=== PATIENT | female | born 1940 | race Caucasian/White ===

== ENCOUNTER 2016-10-19 17:07 | Observation (INO) | payer MEDICARE ==
[~2016-10-19] VITALS: Ht 165.1 cm; Wt 62.6 kg
--- NOTE | 2016-10-19 17:30 | Diagnostic Imaging Report ---
PROCEDURE: CT head without contrast. TECHNIQUE: Multiple contiguous axial images were obtained through the brain without the use of intravenous contrast. DATE: October 20, 2016. COMPARISON: None. INDICATION: A 76-year-old male, evaluation for stroke. Slurred speech and confusion. FINDINGS: The ventricles and cerebral spinal fluid spaces are of normal size and configuration for the patient's age. There is no mass effect or midline shift. There is no acute intracranial hemorrhage. There is no abnormal extra-axial fluid collection. The visualized portions of the paranasal sinuses, mastoid air cells and middle ears are well aerated. IMPRESSION: 1. No identified acute intracranial abnormality. Dictated by: Dictated on workstation # [id number]
--- NOTE | 2016-10-19 17:33 | Diagnostic Imaging Report ---
EXAM: CHEST 1 VIEW, AP/PA ONLY. INDICATION: Stroke protocol. Slurred speech. Confusion. COMPARISON: None. FINDINGS: Normal heart size and pulmonary vascularity. No focal pulmonary opacity, pleural effusion, or pneumothorax. Enchondroma in the proximal right humerus. Calcified aorta. No acute osseous findings. IMPRESSION: No acute cardiopulmonary findings. Dictated by: Dictated on workstation # [id number]
--- NOTE | 2016-10-19 17:34 | ED Neurological Problem ---
General Chief Complaint: Neuro-Stroke Like Symptoms Stated Complaint: POSSIBLE CVA Source: patient, EMS Exam Limitations: no limitations History of Present Illness Time seen by provider: 17:34 Timing/Duration: 1 hour Severity: mild Associated Symptoms: confusion (numbness in right arm), other (numbness in right arm) Constitutional: other (awareness that her speech was abnormal) Eyes: No Symptoms Reported Ears, Nose, Mouth, Throat: no symptoms reported Respiratory: cough, dyspnea on exertion, short of breath Cardiovascular: no symptoms reported Gastrointestinal: no symptoms reported Genitourinary: no symptoms reported Musculoskeletal: no symptoms reported Skin: no symptoms reported Psychiatric/Neurological: No Symptoms Reported Endocrine: No Symptoms Reported Hematologic/Lymphatic: No Symptoms Reported Past Klcdxql-Yvfwgd-Serkjm Hx Patient Social History Recent Foreign Travel: No Contact w/Someone Who Travel: No Physical Exam Vital Signs Vital Sign - Last 12Hours 10/19/16 17:09 Pulse 91 Resp 20 B/P (MAP) 219/140 Pulse Ox 94 O2 Delivery Room Air Capillary Refill : General Appearance: mild distress, other (speech was clear but she had difficulty naming objects or thoughts) Neck: non-tender, full range of motion, supple, normal inspection Respiratory: decreased breath sounds, rhonchi Cardiovascular: normal peripheral pulses, regular rate, rhythm, no edema, no gallop, no JVD, no murmur Gastrointestinal: normal bowel sounds, non tender, soft, no organomegaly, no pulsatile mass Extremities: normal range of motion, non-tender, normal inspection, no pedal edema, no calf tenderness, normal capillary refill, pelvis stable Neurologic/Psychiatric: food demonstrator II-XII nml as tested, no motor/sensory deficits, alert, normal mood/affect, oriented x 3 Crainal Nerves: normal hearing, normal speech (clear but word search) Coordination/Gait: normal finger to nose Motor/Sensory: no motor deficit, no sensory deficit, no pronator drift, negative Babinski's sign, positive Babinski's sign Skin: normal color, warm/dry Lymphatic: no adenopathy Progress/Results/Core Measures Results/Orders Lab Results Laboratory Tests Test 10/19/16 17:34 10/19/16 17:42 Range/Units White Blood Count 12.1 H 4.3-11.0 10^3/uL Red Blood Count 4.29 L 4.35-5.85 10^6/uL Hemoglobin 14.1 11.5-16.0 G/DL Hematocrit 40 35-52 % Mean Corpuscular Volume 94 80-99 FL Mean Corpuscular Hemoglobin 33 25-34 PG Mean Corpuscular Hemoglobin Concent 35 32-36 G/DL Red Cell Distribution Width 12.0 10.0-14.5 % Platelet Count 323 130-400 10^3/uL Mean Platelet Volume 8.3 7.4-10.4 FL Neutrophils (%) (Auto) 69 42-75 % Lymphocytes (%) (Auto) 15 12-44 % Monocytes (%) (Auto) 11 0-12 % Eosinophils (%) (Auto) 4 0-10 % Basophils (%) (Auto) 1 0-10 % Neutrophils # (Auto) 8.3 H 1.8-7.8 X 10^3 Lymphocytes # (Auto) 1.9 1.0-4.0 X 10^3 Monocytes # (Auto) 1.4 H 0.0-1.0 X 10^3 Eosinophils # (Auto) 0.5 H 0.0-0.3 10^3/uL Basophils # (Auto) 0.1 0.0-0.1 10^3/uL Prothrombin Time 12.0 L 12.2-14.7 SEC INR Comment 0.9 0.8-1.4 Activated Partial Thromboplast Time 28 24-35 SEC D-Dimer 0.55 H 0.00-0.49 UG/ML Glucometer 102 70-110 MG/DL My Orders Orders - SANDOVAL LARSON MD Ct Head Wo (10/19/16 17:08) Cbc With Automated Diff (10/19/16 17:18) Protime With Inr (10/19/16 17:18) Partial Thromboplastin Time (10/19/16 17:18) Comprehensive Metabolic Panel (10/19/16 17:18) Fibrin Degradation Products (10/19/16 17:18) Troponin I (10/19/16 17:18) Ua Culture If Indicated (10/19/16 17:18) Catheter(Urinary) Insert & Ass 03,15 (10/19/16 17:18) Ekg Tracing (10/19/16 17:18) Nothing By Mouth (10/20/16 Breakfast) Accucheck Stat ONCE (10/19/16 17:18) Saline Lock/Iv-Start (10/19/16 17:18) Saline Lock/Iv-Start (10/19/16 17:18) Vital Signs-Stroke Q1H (10/19/16 17:18) O2 (10/19/16 17:18) Intake & Output 06,14,22 (10/19/16 17:18) Monitor-Rhythm Ecg Trace Only (10/19/16 17:18) Dysphagia Screening Tool (10/19/16 17:18) Vital Signs/I&O Vital Sign - Last 12Hours 10/19/16 17:09 Pulse 91 Resp 20 B/P (MAP) 219/140 Pulse Ox 94 O2 Delivery Room Air Departure Communication Progress Notes 1806 the patient's family is here and the findings are discussed with them. 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 Impression Impression: Primary Impression: dysphasia Disposition: ADMITTED INPATIENT Condition: Stable/Unchanged Decision to Admit Reason: Admit from ER (General) Decision to Admit/Date: Oct 19, 2016 Time/Decision to Admit Time: 18:14 SANDOVAL LARSON MD Oct 19, 2016 17:34
[2016-10-19 17:41] LABS: BASOPHILS # (AUTO) 0.1 10^3/uL (0.0-0.1); BASOPHILS % (AUTO) 1 % (0-10); EOSINOPHILS # (AUTO) 0.5 10^3/uL (0.0-0.3); EOSINOPHILS % (AUTO) 4 % (0-10); LYMPHOCYTES # (AUTO) 1.9 X 10^3 (1.0-4.0); LYMPHOCYTES % (AUTO) 15 % (12-44); MEAN CORPUSCULAR HEMOGLOBIN 33 PG (25-34); MEAN CORPUSCULAR HGB CONC 35 G/DL (32-36); MEAN CORPUSCULAR VOLUME 94 FL (80-99); MEAN PLATELET VOLUME 8.3 FL (7.4-10.4); MONOCYTES # (AUTO) 1.4 X 10^3 (0.0-1.0); MONOCYTES % (AUTO) 11 % (0-12); NEUTROPHILS # (AUTO) 8.3 X 10^3 (1.8-7.8); NEUTROPHILS % (AUTO) 69 % (42-75); PLATELET COUNT 323 10^3/uL (130-400); RED BLOOD COUNT 4.29 10^6/uL (4.35-5.85); WHITE BLOOD COUNT 12.1 10^3/uL (4.3-11.0)
[2016-10-19 18:01] LABS: INR 0.9 (0.8-1.4)
[2016-10-19 18:11] LABS: ALANINE AMINOTRANSFERASE 23 U/L (0-55); ALBUMIN 4.4 G/DL (3.2-4.5); ANION GAP 13 MMOL/L (5-14); ASPARTATE AMINO TRANSFERASE 27 U/L (5-34); BILIRUBIN,TOTAL 0.4 MG/DL (0.1-1.0); BLOOD UREA NITROGEN 9 MG/DL (7-18); BUN/CREATININE RATIO 13; CALCIUM 9.8 MG/DL (8.5-10.1); CARBON DIOXIDE 22 MMOL/L (21-32); CHLORIDE 96 MMOL/L (98-107); CREATININE SERUM 0.67 MG/DL (0.60-1.30); GFR ESTIMATED > 60; GLUCOSE 92 MG/DL (70-105); POTASSIUM 4.3 MMOL/L (3.6-5.0); SODIUM 131 MMOL/L (135-145); TOTAL PROTEIN 7.1 G/DL (6.4-8.2)
[2016-10-19 18:17] LABS: TROPONIN I < 0.30 NG/ML (<0.30)
[2016-10-19] MEDS ORDERED: ASPIRIN 81 MG CHEW (CHILDREN'S ASA) PO ONE (18:30)
[2016-10-19 20:00] VITALS: BP 170/81
[2016-10-19] MEDS ORDERED: CATHETER FLUSH 10 ML SYR IV PRN (20:15)
[2016-10-19] MEDS: CATHETER FLUSH 10 ML SYR IV SCH (22:00)
[2016-10-19] MEDS ORDERED: RT-ALBUTEROL/IPRATROPIUM 3 ML (DUONEB) VIAL INH PRN (23:15)
[2016-10-19 23:35] VITALS: BP 167/88
[2016-10-20] VITALS: BP 158/76
[2016-10-20] MEDS ORDERED: LEVO50TA6 PO (00:17)
[2016-10-20] MEDS ORDERED: [UNRECOGNIZED DRUG - CODE] PO (00:17)
[2016-10-20] MEDS ORDERED: ROPI1TAB2 PO (00:17)
[2016-10-20] MEDS ORDERED: MELO15TA39 PO (00:17)
[2016-10-20] MEDS ORDERED: ALBUTEROL NEB IH (00:17)
[2016-10-20] MEDS ORDERED: ACET-575 PO (00:17)
[2016-10-20] MEDS ORDERED: ATOR20TA66 PO (00:17)
[2016-10-20] MEDS ORDERED: ESTR1TAB24 PO (00:17)
[2016-10-20 04:00] VITALS: BP 160/74
[2016-10-20] MEDS: CATHETER FLUSH 10 ML SYR IV SCH ×2 (06:00→14:01)
[2016-10-20] MEDS: RT-ALBUTEROL/IPRATROPIUM 3 ML (DUONEB) VIAL INH SCH ×2 (07:00→11:10)
[2016-10-20 08:00] VITALS: BP 176/80
[2016-10-20] MEDS ORDERED: ONDANSETRON 4 MG (ZOFRAN) ORAL DISSOLVE TAB PO ONE (08:45)
--- NOTE | 2016-10-20 10:20 | Short Stay Summary-Hospitalist ---
HPI History of Present Illness: HPI/Chief Complaint Pt is a 76yoCF who presents with CC of right hand numbness and weakness along with expressive aphasia. She states symptoms last roughly 1 hour htose is unsureon timeframe as was slightly confused. Daughter was present and witnessed it. Symptoms have completely resolved. No history of stroke or TIA in past. She is currently on estradiol for hormone replacement and is reluctant to DC taking this. She is also concerned about a cough that has been going on for 3 months. She has sputum production. She has been diagnosed with emphysema per daughter but has not had formal testing. She is scheduled to see a senior sales compensation analyst for testing on Saturday. Source: patient, family, RN/MD Exam Limitations: no limitations Date Seen 10/20/16 Attending Physician Shy Cui DO PCP No,Local Physician Referring Physician Date of Admission Oct 19, 2016 at 18:12 Home Medications & Allergies Home Medications Reviewed patient Home Medication Reconciliation Form Allergies Allergies Coded Allergies No Known Drug Allergies (Unverified10/19/16) Past Axvpwvb-Gdijhk-Dnijcm Hx Patient Social History Alcohol Use: Denies Use Recreational Drug Use: No Smoking Status: Current Everyday Smoker Type Used: Cigarettes 2nd Hand Smoke Exposure: Yes Physical Abuse Screen: No Sexual Abuse: No Recent Foreign Travel: No Contact w/other who traveled: No Recent Hopitalizations: No Recent Infectious Disease Expo: No Immunizations Up To Date Tetanus Booster (TDap): Less than 5yrs Date of Pneumonia Vaccine: Mar 24, 2016 Seasonal Allergies Seasonal Allergies: Yes Surgeries Surgeries: Appendectomy, Breast (lumpectomy), Hysterectomy, Orthopedic Respiratory Respiratory Disorders: Emphysema Cardiovascular Hx Cardiovascular Disorders: No Cardiac Disorders: High Cholesterol Neurological Hx Neurological Disorders: No Reproductive System : No Sexually Transmitted Disease: No HIV/AIDS: No Female Reproductive Disorders: Denies Genitourinary Hx Genitourinary Disorders: No Gastrointestinal Hx Gastrointestinal Disorders: No Musculoskeletal Hx Musculoskeletal Disorders: No Musculoskeletal Disorders: Fractures Endocrine Hx Endocrine Disorders: Yes Endocrine Disorders: Hypothyroidsim Integumentary HX Skin/Integumentary Disorder: No Blood Transfusions Adverse Reaction to a Blood Tr: No Family Medical History Family Hx: Alzheimer's disease 19 MOTHER, , Onset:60 years & older Blood clots 19 FATHER, , Onset:50's - 60 FH: chronic pain G8 SISTER, Onset:Unknown FH: emphysema G8 BROTHER, , Onset:60 years & older FH: lung cancer 19 FATHER, , Onset:50's - 60 Respiratory disorder G8 SISTER, Onset:Unknown Review of Systems Constitutional: other (denies fevers/chills) EENTM: other (no ear pain/nasal congestion/sore throat) Respiratory: cough, phlegm Cardiovascular: other (+chest tightness with cough) Gastrointestinal: nausea Genitourinary: no symptoms reported Musculoskeletal: no symptoms reported Skin: no symptoms reported Psychiatric/Neurological: No Symptoms Reported Physical Exam Physical Exam Vital Signs Vital Sign - Last 12Hours 10/19/16 10/19/16 17:09 20:00 Temp 96.5 Pulse 91 Resp 20 B/P (MAP) 219/140 Pulse Ox 94 O2 Delivery Room Air Capillary Refill : Less Than 3 Seconds General Appearance: No Apparent Distress, WD/WN Eyes: Bilateral Eye Normal Inspection, Bilateral Eye PERRL Neck: Normal Inspection, Non Tender, Supple Respiratory: Chest Non Tender, No Accessory Muscle Use, No Respiratory Distress , Decreased Breath Sounds, Other (no rales/rhonchi) Cardiovascular: Regular Rate, Rhythm, No Edema, No JVD Gastrointestinal: Normal Bowel Sounds, Non Tender, Soft Back: No Vertebral Tenderness, Other (kyphosis) Extremity: Non Tender, No Pedal Edema Neurologic/Psychiatric: Alert, Oriented x3, Normal Mood/Affect Skin: Normal Color, Warm/Dry Results Results/Procedures Lab Laboratory Tests 10/19/16 17:34 Short Stay Diagnosis Discharge Diagnosis-Short Stay Admission Diagnosis Dysphasia Final Discharge Diagnosis TIA Conclusion Plan TIA - Symptoms resolved in ER - Cards consulted, appreciate recs - Follow up on Carotid dopplers - On moderate intensity statin at home (Atorvastatin 20mg) continue - Start ASA 81mg - Recommend follow up with outpatient - Discussed continued use of HRT (estradiol on AUG) and risk of CVA, she states has trialed off and did not tolerate. Recommended DC-ing. She states she will follow up with Melony Cleaning NP who is PCP. Chronic cough - Likely due to emphysema, no signs of acute exacerbation - Recommended follow up with Pulm as scheduled on Saturday - Will provide zofran as outpatient as coughing following DuoNebs causes some nausea Dispo: DC home today following dopplers. Sharad Figueroa MD Clinical Quality Measures DVT/VTE Risk/Contraindication: Risk Factor Score Per Nursin RFS Level Per Nursing on Admit: 3=High Stroke: Date of last known well: Oct 19, 2016 SHARAD FIGUEROA MD Oct 20, 2016 10:20
[2016-10-20] MEDS ORDERED: ONDA4TAB8 PO ×2 (10:29→13:41)
--- NOTE | 2016-10-20 10:30 | Discharge Inst-Simple/Standard ---
Discharge Inst-Standard Discharge Medications New, Converted or Re-Newed RX: RX Given to Pt/Family Patient Instructions/Follow Up Plan of Care/Instructions/FU: Please follow up with your bottom worker as scheduled and Melony Cleaning in 1 week to follow up this hospital stay. Activity as Tolerated: Yes Discharge Diet: Low Sodium Diet, Cardiac Diet Return to The Hospital For: If your symptoms return or worsen please return to the ER. Planned Outpatient Orders/Ref. Pneu Vac Indicated: Yes SHARAD KRISHNAN MD Oct 20, 2016 10:30
[2016-10-20] MEDS ORDERED: ASPI-586 PO ×2 (10:33→13:41)
[2016-10-20 12:00] VITALS: BP 156/76
--- NOTE | 2016-10-20 12:48 | Consultation-Cardiology ---
HPI-Cardiology Cardiology Consultation Date of Consultation 10/20/16 Date of Admission Indication: TIA HPI 76-year-old lady with history of hyperlipidemia, tobaccoism, started having sudden onset of facial droop, slurred speech and numbness in her right arm. Came into the emergency room, she was feeling better, currently feeling better, no further symptoms. No similar symptoms or episodes in the past. Denied any chest pain or shortness of breath, reported history of palpitation in the remote past, denied any syncope or near syncopal episodes. No claudications. Home Medications & Allergies Allergies: Coded Allergies: No Known Drug Allergies (Unverified , 10/19/16) Home Medication List Reviewed: Yes ZQI-Ekpmkm-Zhtvlf Hx Patient Social History Alcohol Use: Denies Use Recreational Drug Use: No Smoking Status: Current Everyday Smoker Type Used: Cigarettes 2nd Hand Smoke Exposure: Yes Recent Foreign Travel: No Recent Infectious Disease Expo: No Recent Hopitalizations: No Physical Abuse Screen: No Sexual Abuse: No Immunizations Up To Date Tetanus Booster (TDap): Less than 5yrs Date of Pneumonia Vaccine: Mar 24, 2016 Past Medical History past medical history as discussed below Family Medical History Family History: 19 FATHER, FH: lung cancer, Onset:50's - 60 Blood clots, Onset:50's - 60 19 MOTHER, Alzheimer's disease, Onset:60 years & older G8 BROTHER, FH: emphysema, Onset:60 years & older G8 SISTER Respiratory disorder, Onset:Unknown FH: chronic pain, Onset:Unknown Constitutional: see HPI, malaise EENTM: no symptoms reported, see HPI Respiratory: see HPI, cough, dyspnea on exertion, No hemoptysis, No orthopnea, phlegm, short of breath, No stridor, No wheezing, No other Cardiovascular: see HPI, No chest pain, No edema, No Hx of Intervention, No palpitations, No syncope, No vascular heart diseas, No other Gastrointestinal: no symptoms reported, see HPI Genitourinary: no symptoms reported, see HPI Musculoskeletal: no symptoms reported, see HPI Skin: no symptoms reported, see HPI Psychiatric/Neurological: See HPI, Numbness, Paresthesia, Weakness Reviewed Test Results Reviewed Test Results Lab Laboratory Tests Test 10/19/16 17:34 10/19/16 17:42 Range/Units White Blood Count 12.1 H 4.3-11.0 10^3/uL Red Blood Count 4.29 L 4.35-5.85 10^6/uL Hemoglobin 14.1 11.5-16.0 G/DL Hematocrit 40 35-52 % Mean Corpuscular Volume 94 80-99 FL Mean Corpuscular Hemoglobin 33 25-34 PG Mean Corpuscular Hemoglobin Concent 35 32-36 G/DL Red Cell Distribution Width 12.0 10.0-14.5 % Platelet Count 323 130-400 10^3/uL Mean Platelet Volume 8.3 7.4-10.4 FL Neutrophils (%) (Auto) 69 42-75 % Lymphocytes (%) (Auto) 15 12-44 % Monocytes (%) (Auto) 11 0-12 % Eosinophils (%) (Auto) 4 0-10 % Basophils (%) (Auto) 1 0-10 % Neutrophils # (Auto) 8.3 H 1.8-7.8 X 10^3 Lymphocytes # (Auto) 1.9 1.0-4.0 X 10^3 Monocytes # (Auto) 1.4 H 0.0-1.0 X 10^3 Eosinophils # (Auto) 0.5 H 0.0-0.3 10^3/uL Basophils # (Auto) 0.1 0.0-0.1 10^3/uL Prothrombin Time 12.0 L 12.2-14.7 SEC INR Comment 0.9 0.8-1.4 Activated Partial Thromboplast Time 28 24-35 SEC D-Dimer 0.55 H 0.00-0.49 UG/ML Sodium Level 131 L 135-145 MMOL/L Potassium Level 4.3 3.6-5.0 MMOL/L Chloride Level 96 L 98-107 MMOL/L Carbon Dioxide Level 22 21-32 MMOL/L Anion Gap 13 5-14 MMOL/L Blood Urea Nitrogen 9 7-18 MG/DL Creatinine 0.67 0.60-1.30 MG/DL Estimat Glomerular Filtration Rate > 60 BUN/Creatinine Ratio 13 Glucose Level 92 70-105 MG/DL Calcium Level 9.8 8.5-10.1 MG/DL Total Bilirubin 0.4 0.1-1.0 MG/DL Aspartate Amino Transf (AST/SGOT) 27 5-34 U/L Alanine Aminotransferase (ALT/SGPT) 23 0-55 U/L Alkaline Phosphatase 59 40-136 U/L Troponin I < 0.30 <0.30 NG/ML Total Protein 7.1 6.4-8.2 G/DL Albumin 4.4 3.2-4.5 G/DL Glucometer 102 70-110 MG/DL Physical Exam Vital Signs Vital Sign - Last 12Hours 10/19/16 10/19/16 17:09 20:00 Temp 96.5 Pulse 91 Resp 20 B/P (MAP) 219/140 Pulse Ox 94 O2 Delivery Room Air Capillary Refill : Less Than 3 Seconds General Appearance: No Apparent Distress, WD/WN Eyes: Bilateral Eye EOMI, Bilateral Eye Normal Inspection, Bilateral Eye PERRL HEENT: PERRL/EOMI, TMs Normal, Normal ENT Inspection, Pharynx Normal Neck: Full Range of Motion, Normal Inspection, Non Tender, Supple, Carotid Bruit Respiratory: Chest Non Tender, Lungs Clear, Normal Breath Sounds, No Accessory Muscle Use, No Respiratory Distress Cardiovascular: Regular Rate, Rhythm, No Edema, No Gallop, No JVD, No Murmur, Normal Peripheral Pulses Gastrointestinal: Normal Bowel Sounds, No Organomegaly, No Pulsatile Mass, Non Tender, Soft Back: Normal Inspection, No CVA Tenderness, No Vertebral Tenderness Extremity: Normal Capillary Refill, Normal Inspection, Normal Range of Motion, Non Tender, No Calf Tenderness, No Pedal Edema Neurologic/Psychiatric: Alert, Oriented x3, No Motor/Sensory Deficits, Normal Mood/Affect Skin: Normal Color, Warm/Dry Lymphatic: No Adenopathy A/P-Cardiology Admission Diagnosis TIA Hypertension Hyperlipidemia Tobaccoism Assessment/Plan TIA, full recovery at this time, source is unknown, questionable carotid stenosis, echocardiogram was reviewed and showed pulmonary hypertension, no cardiac source of embolization was identified. Started on aspirin, continue to monitor Hypertension, was not on any blood pressure medication, I will start on metoprolol and monitor blood pressure Hyperlipidemia, has been followed as an outpatient, maintained on statin. Shortness of breath, cough, COPD, she is scheduled to see Dr Robin as an outpatient Arthritis and arthritic pain. Tobaccoism, educated on smoking cessation Clinical Quality Measures DVT/VTE Risk/Contraindication: Risk Factor Score Per Nursin RFS Level Per Nursing on Admit: 3=High Stroke: Date of last known well: Oct 19, 2016 PATRICIA SANDOVAL MD Oct 20, 2016 12:48
[2016-10-20] MEDS ORDERED: amLODIPine 5 MG (NORVASC) TAB PO ONE (13:00)
--- NOTE | 2016-10-20 13:19 | Diagnostic Imaging Report ---
PROCEDURE: US Carotid Duplex Bilateral. TECHNIQUE: Multiple real-time grayscale images were obtained over the carotid arteries in various projections bilaterally. Additional duplex Doppler and color Doppler images were also obtained. INDICATION: TIA and slurred speech. There are no prior studies available for comparison. FINDINGS: There is fairly heavy soft plaque formation involving the carotid bifurcation on the left. The maximum velocity in this area is approximately 160 cm/sec. I do suspect that this portion of the vessel is stenotic but the velocity is not high enough to suggest a stenosis greater than 70%. The IC/CC ratio on the left is 1.46. There is no sign of a hemodynamically significant stenosis of the right carotid system. Both vertebral arteries with antegrade flow bilaterally. IMPRESSION: 1. There is fairly severe atherosclerotic disease involving the carotid bifurcation on the left. The velocity of blood flow in this area is elevated but there is no clear evidence for a hemodynamically significant stenosis. 2. There is no sign of a hemodynamically significant stenosis of the right carotid system. 3. If further imaging is desired, then CTA of the neck would be recommended. Dictated by: Dictated on workstation # [id number]
[2016-10-20] MEDS ORDERED: AMLO5TAB4 PO (13:27)
--- NOTE | 2016-10-21 06:14 | ECHOCARDIOGRAPHY REPORT ---
DATE OF SERVICE: 10/20/2016 PROCEDURE: TWO-DIMENSTIONAL ECHOCARDIOGRAM INDICATION: TIA. MEASUREMENT: LVID end diastolic 3.6, IVS thickness 1.0, LVPW thickness 1.0, left atrial diameter 2.0, ejection fraction 70%. FINDINGS: 1. Technical quality is good. 2. The left ventricular is normal in size, hyperactive ventricle, estimated ejection fraction 70%. 3. The left atrium is normal in size. No clot or thrombus were seen within the left atrium. 4. The right atrium and right ventricle are normal in size. No clot or thrombus were seen with the right side. 5. Mitral valve is mildly calcified with mild mitral regurgitation noted by color Doppler flow. Doppler across the mitral valve showed EA reversal, which is an expected finding at patient of age 76. 6. Aortic valve is mildly calcified, there is no significant aortic valve stenosis noted, mild aortic regurgitation noted by color Doppler flow. 7. Tricuspid valve is normal in morphology with mild tricuspid regurgitation noted by color Doppler flow. Doppler across the tricuspid valve estimated pulmonary artery pressure of 52+ right atrial pressure. 8. Pulmonic valve is functioning normally. 9. No pericardial effusion. IN CONCLUSION: 1. Normal left ventricular size with hyperactive ventricle. Estimated ejection fraction is 60%. 2. Aortic valve sclerosis, no aortic stenosis, mild aortic regurgitation. 3. Mild mitral and tricuspid regurgitation. 4. Pulmonary hypertension with estimated pulmonary artery pressure of 60 mmHg. Job ID: [id number] DocumentID: [id number] Dictated Date: 10/20/2016 12:41:33 Senior [employer] Adf Developer Date: 10/20/2016 13:21:59 Dictated By: PATRICIA SANDOVAL MD
[2016-10-21] MEDS ORDERED: amLODIPine 5 MG (NORVASC) TAB PO SCH (09:00)
== END 2016-10-20 10:31 | disposition home or self-care (01) ==
LOC: EDUNIT# 17:07 → ER 17:08 → 4TH 18:12 → UNDOADMOB 18:12 → 4TH 18:57 → UNDODISOB 10-20 14:00
PROVIDERS: ADMIT Internal Medicine; ATTEND Internal Medicine
DX: G45.9 Transient cerebral ischemic attack, unspecified (principal); I27.2 Other secondary pulmonary hypertension; I10 Essential (primary) hypertension; E78.5 Hyperlipidemia, unspecified; J44.9 Chronic obstructive pulmonary disease, unspecified; M19.90 Unspecified osteoarthritis, unspecified site; F17.210 Nicotine dependence, cigarettes, uncomplicated; R05 Cough
CPT/HCPCS: 36415; 70450; 71010; 80053; 82962; 84484; 85025; 85379; 85610; 85730; 93005; 93041; 93306; 93880; 94640; 94760; G0378

== ENCOUNTER → 2016-11-26 | Outpatient (CLI) | payer MEDICARE ==
[~2016-11-26] MED LIST: ACET-575 PO; ALBUTEROL NEB IH; AMLO5TAB4 PO; ASPI-586 PO; ATOR20TA66 PO; CATHETER FLUSH 10 ML SYR IV PRN; ESTR1TAB24 PO; IOHEXOL 350 MG/ML 100 ML (OMNIPAQUE 350) VIAL IV ONE; LEVO50TA6 PO; MELO15TA39 PO; NS 100 ML (IVPB) BAG IV ONE; ONDA4TAB8 PO; ROPI1TAB2 PO; [UNRECOGNIZED DRUG - CODE] PO
--- NOTE | 2016-11-26 14:15 | Diagnostic Imaging Report ---
PROCEDURE: CT angiography of the head and CT angiography of the neck with and without contrast. TECHNIQUE: Contiguous noncontrast images were obtained from the skull base through the vertex. After intravenous contrast administration, helical CT angiography of the neck was performed. Source data was reformatted into multiple MIP projections. Delayed post contrast acquisition was also obtained. INDICATION: Mini stroke six weeks ago. Evaluate the carotid arteries. 80 mL of Omnipaque 350 is administered intravenously. FINDINGS: CTA neck: There is a prominent calcified plaque seen in the proximal right internal carotid artery with underlying stenosis estimated at around 40%. In the left internal carotid artery, there is a prominent atherosclerotic plaque, predominantly calcified with estimated underlying stenosis up to 60%. The mid and distal segments of the internal carotid arteries are patent on both sides. External carotid arteries are patent. The right common carotid artery and the brachiocephalic artery are patent. The left common carotid artery is patent. The left subclavian artery is patent. The vertebral arteries are patent with the right vertebral artery significantly larger than the left. Both vertebral arteries appear patent with no significant stenosis. Soft tissue findings in the neck demonstrate symmetric parotid and submandibular glands. The thyroid gland appears normal. The lung apices demonstrate advanced emphysema changes. The osseous structures demonstrate multilevel disc degenerative disease. CTA head: The unenhanced images demonstrate no intracranial hemorrhage. The parenchymal phase postcontrast images demonstrate no enhancing mass in the brain. No hydrocephalus, and no extra-axial fluid collection is seen. The internal carotid artery intracranial segment on the right side demonstrates mild atherosclerotic plaque with normal appearance of the right CARRIE and MCA. The left internal carotid artery similarly demonstrates mild disease in the cavernous segment with patent left CARRIE and left MCA. The intracranial vertebral arteries are patent with dominant right vertebral artery. The basilar artery is normal. The posterior cerebral arteries appear normal. No high-grade stenosis, occlusion, or aneurysm is seen. The dural venous sinuses appear patent. IMPRESSION: CTA neck: Estimated underlying stenosis in the proximal left ICA is around 40% and estimated underlying stenosis in the proximal right ICA is around 60%. CTA head: No high-grade stenosis, occlusion, or aneurysm is seen. Dictated by: Dictated on workstation # [id number]
== END ==
LOC: RAD 11:17
PROVIDERS: ATTEND Physician Assistant
DX: I65.23 Occlusion and stenosis of bilateral carotid arteries (principal); I35.8 Other nonrheumatic aortic valve disorders; I27.2 Other secondary pulmonary hypertension; G45.8 Other transient cerebral ischemic attacks and related syndromes; Z72.0 Tobacco use
CPT/HCPCS: 70496; 70498

== ENCOUNTER 2020-12-28 12:47 | Inpatient (IN) | payer MEDICARE, OTHER ==
[~2020-12-28] VITALS: Ht 165 cm; Wt 73.6 kg
[~2020-12-28 12:47] MED LIST changes: -CATHETER FLUSH 10 ML SYR IV PRN; -IOHEXOL 350 MG/ML 100 ML (OMNIPAQUE 350) VIAL IV ONE; -NS 100 ML (IVPB) BAG IV ONE; +ROPI1TAB PO; -ROPI1TAB2 PO
--- NOTE | 2020-12-28 13:12 | ED Respiratory ---
General Stated Complaint: COPD Source: patient Exam Limitations: no limitations History of Present Illness Date Seen by Provider: Dec 28, 2020 Time Seen by Provider: 12:59 Initial Comments This is a 70-year-old female who presents to the ER via [facility] with complaints of shortness of breath. States that she was recently diagnosed with exacerbation of her COPD and placed on azithromycin and prednisone taper middle of November. States that she has completed both of these. However, over the last 3 days she has been having increasing shortness of breath. Upon EMS arrival her oxygen saturation was in the 70s. She was given a DuoNeb which increased her oxygen to the upper 80s. She denies fever, chills, cough, nausea, vomiting, chest pain, abdominal pain. States that she has had both of her Covid vaccines. Has had no Covid exposures. Allergies and Home Medications Allergies Coded Allergies: No Known Drug Allergies (Unverified , 10/19/16) Home Medications Amlodipine Besylate 5 Mg Tablet, 5 MG PO DAILY Prescribed by: JASE TORIBIO on 10/20/16 1327 Last Action: Reviewed Aspirin 81 Mg Tablet.dr, 81 MG PO DAILY Prescribed by: JASE TORIBIO on 10/20/16 1341 Last Action: Reviewed Atorvastatin Calcium 20 Mg Tablet, 20 MG PO HS, (Reported) Last Action: Reviewed Duloxetine HCl 30 Mg Capsule.dr, 30 MG PO DAILY, (Reported) Last Action: New Order Estradiol 1 Mg Tablet, 1 MG PO DAILY, (Reported) Last Action: Reviewed Guaifenesin/Dextromethorphan 237 Ml Syrup, 10 ML PO Q4H PRN for CONGESTION, (Reported) Last Action: Reviewed Levothyroxine Sodium 50 Mcg Tablet, 50 MCG PO DAILY, (Reported) Last Action: Reviewed Meloxicam 15 Mg Tablet, 15 MG PO DAILY, (Reported) Last Action: Reviewed Ondansetron 4 Mg Tab.rapdis, 4 MG PO Q8H PRN for NAUSEA/VOMITING-1ST LINE Prescribed by: JASE TORIBIO on 10/20/16 1341 Last Action: Reviewed Ropinirole HCl 1 Mg Tablet, 1 MG PO HS, (Reported) Last Action: Reviewed [Albuterol Neb] , IH Q4H PRN for SHORTNESS OF BREATH, (Reported) 0.5mg/3mg per 3ml Q 4 prn Last Action: Reviewed Patient Home Medication List Home Medication List Reviewed: Yes Review of Systems Review of Systems Constitutional: weakness EENTM: no symptoms reported Respiratory: dyspnea on exertion, short of breath Cardiovascular: no symptoms reported Gastrointestinal: no symptoms reported Genitourinary: no symptoms reported Musculoskeletal: no symptoms reported Skin: no symptoms reported Psychiatric/Neurological: No Symptoms Reported Hematologic/Lymphatic: No Symptoms Reported Immunological/Allergic: no symptoms reported Past Jrerrzi-Hzhush-Nlytoi Hx Immunizations Up To Date Tetanus Booster (TDap): Less than 5yrs PED Vaccines UTD: No Seasonal Allergies Seasonal Allergies: Yes Past Medical History Surgeries: Yes (BREAST LUMPECTOMY) Appendectomy, Breast, Hysterectomy, Orthopedic Respiratory: Yes (PROBABLY EMPHYSEMA, NOT YET DIAGNOSED) Emphysema Currently Using CPAP: No Currently Using BIPAP: No Cardiac: Yes High Cholesterol Neurological: No Female Reproductive Disorders: 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 Sexually Transmitted Disease: No HIV/AIDS: No Genitourinary: No Gastrointestinal: No Musculoskeletal: Yes (LEFT ARM) Fractures Endocrine: Yes Hypothyroidsim HEENT: No Cancer: No Did You Recieve Any Treatments: No Psychosocial: No Integumentary: No Blood Disorders: No Adverse Reaction/Blood Tranf: No Family Medical History Alzheimer's disease 19 MOTHER, , Onset:60 years & older Blood clots 19 FATHER, , Onset:50's - 60 FH: chronic pain G8 SISTER, Onset:Unknown FH: emphysema G8 BROTHER, , Onset:60 years & older FH: lung cancer 19 FATHER, , Onset:50's - 60 Respiratory disorder G8 SISTER, Onset:Unknown Physical Exam Vital Signs - First Documented 12/28/20 12:47 Temp 37.0 Pulse 120 Resp 36 B/P (MAP) 84/52 (63) Pulse Ox 92 O2 Delivery OxyMask O2 Flow Rate 10.00 Capillary Refill : Height: 5'5.00" Weight: 138lbs. 0.0oz. 62.014663fh; 23.0 BMI Method:Stated General Appearance: moderate distress Eyes: Bilateral Eye Normal Inspection, Bilateral Eye EOMI HEENT: PERRL/EOMI, normal ENT inspection Neck: full range of motion, normal inspection Respiratory: respiratory distress, decreased breath sounds, accessory muscle use Cardiovascular: normal peripheral pulses, regular rate, rhythm, no edema Gastrointestinal: normal bowel sounds, non tender, soft Neurologic/Psychiatric: no motor/sensory deficits, alert, normal mood/affect, oriented x 3 Skin: normal color, warm/dry Focused Exam Lactate Level Lactic Acid Level Laboratory Tests Test 12/28/20 13:00 Lactic Acid Level 3.84 MMOL/L (0.50-2.00) *H Progress/Results/Core Measures Suspected Sepsis SIRS Temperature: Pulse: Respiratory Rate: Laboratory Tests 12/28/20 13:00: White Blood Count 5.4 Blood Pressure / Mean: Laboratory Tests 12/28/20 13:00: Creatinine 1.18, INR Comment 1.3, Platelet Count 230, Total Bilirubin 0.8 Results/Orders Lab Results Laboratory Tests Test 12/28/20 13:00 12/28/20 13:07 12/28/20 13:10 Range/Units White Blood Count 5.4 4.3-11.0 10^3/uL Red Blood Count 4.04 3.80-5.11 10^6/uL Hemoglobin 13.6 11.5-16.0 g/dL Hematocrit 38 35-52 % Mean Corpuscular Volume 94 80-99 fL Mean Corpuscular Hemoglobin 34 25-34 pg Mean Corpuscular Hemoglobin Concent 36 32-36 g/dL Red Cell Distribution Width 12.3 10.0-14.5 % Platelet Count 230 130-400 10^3/uL Mean Platelet Volume 8.6 L 9.0-12.2 fL Immature Granulocyte % (Auto) 0 % Neutrophils (%) (Auto) 89 H 42-75 % Lymphocytes (%) (Auto) 5 L 12-44 % Monocytes (%) (Auto) 5 0-12 % Eosinophils (%) (Auto) 0 0-10 % Basophils (%) (Auto) 1 0-10 % Neutrophils # (Auto) 4.8 1.8-7.8 10^3/uL Lymphocytes # (Auto) 0.3 L 1.0-4.0 10^3/uL Monocytes # (Auto) 0.3 0.0-1.0 10^3/uL Eosinophils # (Auto) 0.0 0.0-0.3 10^3/uL Basophils # (Auto) 0.1 0.0-0.1 10^3/uL Immature Granulocyte # (Auto) 0.0 0.0-0.1 10^3/uL Neutrophils % (Manual) 58 % Lymphocytes % (Manual) 6 % Monocytes % (Manual) 7 % Basophils % (Manual) 1 % Metamyelocytes % 9 % Myelocytes % 13 % Band Neutrophils 6 % Toxic Granulation 4+ Prothrombin Time 16.6 H 12.2-14.7 SEC INR Comment 1.3 0.8-1.4 Activated Partial Thromboplast Time 29 24-35 SEC D-Dimer 2.26 H 0.00-0.49 UG/ML Sodium Level 125 *L 135-145 MMOL/L Potassium Level 4.0 3.6-5.0 MMOL/L Chloride Level 88 L 98-107 MMOL/L Carbon Dioxide Level 23 21-32 MMOL/L Anion Gap 14 5-14 MMOL/L Blood Urea Nitrogen 20 H 7-18 MG/DL Creatinine 1.18 0.60-1.30 MG/DL Estimat Glomerular Filtration Rate 44 BUN/Creatinine Ratio 17 Glucose Level 82 70-105 MG/DL Lactic Acid Level 3.84 *H 0.50-2.00 MMOL/L Calcium Level 9.4 8.5-10.1 MG/DL Corrected Calcium 10.2 H 8.5-10.1 MG/DL Total Bilirubin 0.8 0.1-1.0 MG/DL Aspartate Amino Transf (AST/SGOT) 40 H 5-34 U/L Alanine Aminotransferase (ALT/SGPT) 29 0-55 U/L Alkaline Phosphatase 94 40-136 U/L Troponin I 0.052 H <0.028 NG/ML C-Reactive Protein High Sensitivity 40.74 H 0.00-0.50 MG/DL B-Type Natriuretic Peptide 1547.9 H <100.0 PG/ML Total Protein 5.7 L 6.4-8.2 GM/DL Albumin 3.0 L 3.2-4.5 GM/DL Procalcitonin 22.29 H <0.10 NG/ML Thyroid Stimulating Hormone (TSH) 2.58 0.35-4.94 UIU/ML Smear Scan Influenza Type A (RT-PCR) Not Detected Not Detecte Influenza Type B (RT-PCR) Not Detected Not Detecte SARS-CoV-2 RNA (RT-PCR) Not Detected Not Detecte Blood Gas Puncture Site R RAD Blood Gas Patient Temperature 37.0 Arterial Blood pH 7.50 H 7.37-7.43 Arterial Blood Partial Pressure CO2 28 L 35-45 MMHG Arterial Blood Partial Pressure O2 74 L 79-93 MMHG Arterial Blood HCO3 21 L 23-27 MMOL/L Arterial Blood Total CO2 22.0 21.0-31.0 MMOL/L Arterial Blood Oxygen Saturation 96 94-100 % Arterial Blood Base Excess -1.7 -2.5-2.5 MMOL/L Lito Test YES-POS Blood Gas Ventilator Setting NO Blood Gas Inspired Oxygen 15 L My Orders Orders - LUANN LANGSTON [employer] INTERPRETER Methylprednisolone Sod Succ (Solu-Medrol (12/28/20 13:15) Albuterol Pre-Mix Nebs (Rt) (Proventil (12/28/20 13:15) Svn Small Volume Nebulizer (12/28/20 13:05) Cbc With Automated Diff (12/28/20 13:07) Comprehensive Metabolic Panel (12/28/20 13:07) Blood Culture (12/28/20 13:07) Urinalysis (12/28/20 13:07) Urine Culture (12/28/20 13:07) Protime With Inr (12/28/20 13:07) Partial Thromboplastin Time (12/28/20 13:07) Chest 1 View, Ap/Pa Only (12/28/20 13:07) Ed Iv/Invasive Line Start (12/28/20 13:07) Troponin I (12/28/20 13:07) Vital Signs Adult Sepsis Patie Q15M (12/28/20 13:07) O2 (12/28/20 13:07) Remove Rings In Anticipation O (12/28/20 13:07) Lactic Acid Analyzer (12/28/20 13:07) Influenza A And B By Pcr (12/28/20 13:07) Ns Iv 1000 Ml (Sodium Chloride 0.9%) (12/28/20 13:15) Covid 19 Inhouse Test (12/28/20 13:07) Hs C Reactive Protein (12/28/20 13:07) Procalcitonin (Pct) (12/28/20 13:07) Arterial Blood Gas (12/28/20 13:07) BNP (12/28/20 13:21) Manual Differential (12/28/20 13:00) Morphine Injection (Morphine Injection (12/28/20 13:25) Fibrin Degradation Products (12/28/20 13:35) Ns Iv 1000 Ml (Sodium Chloride 0.9%) (12/28/20 14:00) Ct Angio Chest W (12/28/20 13:48) Morphine Injection (Morphine Injection (12/28/20 13:52) Ceftriaxone (Rocephin) (12/28/20 14:00) Medications Given in ED Current Medications Medications Dose Ordered Sig/Fadi Route Start Time Stop Time Status Last Admin Dose Admin Albuterol Sulfate 2.5 mg ONCE ONCE INH 12/28/20 13:15 12/28/20 13:16 DC 12/28/20 13:21 2.5 MG Methylprednisolone Sodium Succinate 125 mg ONCE ONCE IM 12/28/20 13:15 12/28/20 13:16 DC 12/28/20 13:22 125 MG Sodium Chloride 1,000 ml @ 999 mls/hr Q1H ONCE IV 12/28/20 14:00 12/28/20 15:00 DC 12/28/20 14:47 999 MLS/HR Vital Signs/I&O 12/28/20 12/28/20 12/28/20 12:47 12:47 13:18 Temp 37.0 Pulse 120 127 Resp 36 40 B/P (MAP) 84/52 (63) Pulse Ox 92 84 92 O2 Delivery OxyMask OxyMask O2 Flow Rate 10.00 10.00 45.00 Capillary Refill : Progress Note : Progress Note Upon arrival patient is tachycardic, tachypneic, using accessory muscles to breathe. She was placed on 15 L via oxygen mask and RT paged. She is still alert and oriented at this time. Reviewed CODE STATUS. States that she would like to have CPR and resuscitative measures. However she would like to be a DNI. Initiated Sepsis workup due to tachycardia, hypoxia, and hypotension. Orders placed for 30ml/kg fluid bolus. BP improving with fluid resuscitation. Orders given for MS for air hunger. Appeared to help symptoms somewhat. RT arrived and patient placed on BiPap. Recovered in mid 90's and appeared more comfortable on BiPap. Labs reviewed: ABG-PH-7.50, CO2-28, PO2-74, O2 sat 96%, NA-125, Cl-88, BUN-20, Lactic-3.84, Trop-0.052, CRP-40.74, ProCal-22.29, D-dimer-2.29. Concerns for PE with hypoxia, tachycardia, use of Estradiol, and elevated D-dimer. Orders placed for CT angio chest. Patient placed on 15 L via Oxymask to transfer for CT. Oxygen saturation holding around 94%. Upon return from CT, RT was called back to ED to set up BiPap. This provider attempted to replace BiPap, however patient was unable to tolerate at this time and SpO2 stable on high flow oxygen. RT to initiate if she becomes tachypneic or hypoxic. CT angio shows underlying emphysematous changes. Severe alveolar infiltrate throughout much of the left lower lobe and left upper lobe, compatible with pneumonia. There is a small left pleural effusion. There is no CT evidence of pulmonary emboli or aortic dissection or aneurysm. Reviewed findings with Dr. Santos. Accepted patient admission to ICU for severe sepsis pneumonia. Discussed POC with patient and daughter, both are agreeable with POC. Diagnostic Imaging Diagonstic Imaging: Xray Plain Films/CT/US/NM/MRI: chest [facility] [place] [place] NAME: [facility] REC#: [id number] PT STATUS: REG ER : 1940 PHYSICIAN: LUANN LANGSTON MOTOR [employer] INTERPRETER ADMIT DATE: 12/28/20/ER Draft Date of Exam:12/28/20 CHEST 1 VIEW, AP/PA ONLY HISTORY: Sepsis. COMPARISON: 10/19/2016. TECHNIQUE: Frontal view of the chest. FINDINGS: There is dense consolidation throughout the left lung with relative sparing of the apex. The right lung is clear. The cardiac silhouette is obscured but appears to be stable in size. There is aortic atherosclerosis. No significant pleural effusion or pneumothorax is seen. There is a stable enchondroma in the proximal right humerus. IMPRESSION: 1. New dense consolidation throughout the left lung, consistent with pneumonia. Dictated on workstation # [id number] Dict: 12/28/20 1414 Trans: 12/28/20 1418 [id number] Interpreted by: STAN LUKE MD Electronically signed by: Reviewed: Reviewed by Me Diagonstic Imaging: CT Plain Films/CT/US/NM/MRI: chest Comments [facility] [place] [place] NAME: [facility] REC#: [id number] PT STATUS: ADM IN : 1940 PHYSICIAN: LUANN LANGSTON APRN ADMIT DATE: 12/28/20/ICU Signed Date of Exam:12/28/20 CT ANGIO CHEST W INDICATION: Respiratory failure and shortness of breath and cough. TECHNIQUE: Multiple contiguous axial images were obtained through the chest after uneventful bolus administration of intravenous contrast. 3D reconstructed CTA MIP acquisitions were also performed. Auto Exposure Controls were utilized during the CT exam to meet ALARA standards for radiation dose reduction. COMPARISON: There is no previous CTA of the chest for comparison. FINDINGS: The pulmonary parenchymal vessels are well opacified with no CT evidence of pulmonary emboli. The thoracic aorta shows atherosclerotic plaquing throughout but no evidence of dissection or aneurysm. Great vessel origins are patent with minor plaquing. There is no mediastinal or hilar adenopathy. There are no enlarged axillary nodes or chest wall masses. Lung parenchymal windows demonstrate extensive alveolar consolidation throughout the left lower lobe and large portion of the left upper lobe with relative sparing of the apical region. There is diffuse emphysematous change. The right lung shows no focal lesion. There is a small left pleural effusion. There is no significant right pleural fluid or pericardial fluid. Visualized portions of the upper abdomen were unremarkable. IMPRESSION: Underlying emphysematous changes. Severe alveolar infiltrate throughout much of the left lower lobe and left upper lobe, compatible with pneumonia. There is a small left pleural effusion. There is no CT evidence of pulmonary emboli or aortic dissection or aneurysm. Dictated by: Dictated on workstation # [id number] Dict: 12/28/20 1602 Trans: 12/28/20 1646 [id number] Interpreted by: MANI STUBBS MD Electronically signed by: MANI STUBBS MD 12/28/20 1646 Reviewed: Reviewed by Me Departure Communication (Admissions) Time/Spoke to Admitting Phy: 14:[address] Santos. Accepted patient admission to ICU. Impression Primary Impression: Severe sepsis Additional Impressions: Pneumonia COPD (chronic obstructive pulmonary disease) Disposition: ADMITTED INPATIENT Condition: Stable Admissions Decision to Admit Reason: Admit from ER (General) Decision to Admit/Date: Dec 28, 2020 Time/Decision to Admit Time: 14:05 Departure-Patient Inst. Referrals: NO,LOCAL PHYSICIAN (PCP) Primary Care Physician SONYA MCFADDEN (Family) Primary Care Physician LUANN LANGSTON APRN Dec 28, 2020 13:12
[2020-12-28] MEDS ORDERED: methylPREDNISolone 125 MG (Solu-MEDROL) VIAL IM ONE (13:15)
[2020-12-28] MEDS ORDERED: NS IV 1000 ML 1,000 ML IV SCH (13:15)
[2020-12-28] MEDS ORDERED: RT-ALBUTEROL SULF 2.5 MG/3 ML PRE-MIX VIAL INH ONE (13:15)
[2020-12-28 13:19] LABS: ABG BASE EXCESS -1.7 MMOL/L (-2.5-2.5); ABG OXYGEN SATURATION 96 % (94-100); ABG PCO2 28 MMHG (35-45); ABG PO2 74 MMHG (79-93); ALLENS TEST YES-POS; INSPIRED O2 15 L; VENTILATOR NO
[2020-12-28 13:19] LABS: BASOPHILS # (AUTO) 0.1 10^3/uL (0.0-0.1); BASOPHILS % (AUTO) 1 % (0-10); EOSINOPHILS % (AUTO) 0 % (0-10); HEMATOCRIT 38 % (35-52); HEMOGLOBIN 13.6 g/dL (11.5-16.0); LYMPHOCYTES # (AUTO) 0.3 10^3/uL (1.0-4.0); LYMPHOCYTES % (AUTO) 5 % (12-44); MEAN CORPUSCULAR HEMOGLOBIN 34 pg (25-34); MEAN CORPUSCULAR HGB CONC 36 g/dL (32-36); MEAN CORPUSCULAR VOLUME 94 fL (80-99); MEAN PLATELET VOLUME 8.6 fL (9.0-12.2); MONOCYTES # (AUTO) 0.3 10^3/uL (0.0-1.0); MONOCYTES % (AUTO) 5 % (0-12); NEUTROPHILS # (AUTO) 4.8 10^3/uL (1.8-7.8); NEUTROPHILS % (AUTO) 89 % (42-75); PLATELET COUNT 230 10^3/uL (130-400); WHITE BLOOD COUNT 5.4 10^3/uL (4.3-11.0)
[2020-12-28 13:25] LABS: INR 1.3 (0.8-1.4); PROTHROMBIN TIME PATIENT 16.6 SEC (12.2-14.7)
[2020-12-28] MEDS ORDERED: morphine INJ 10 MG/ML 1ML (SYR OR VIAL) IVP STA ×2 (13:25→13:52)
[2020-12-28 13:26] LABS: CALCIUM 9.4 MG/DL (8.5-10.1)
[2020-12-28 13:27] LABS: TOTAL PROTEIN 5.7 GM/DL (6.4-8.2)
[2020-12-28 13:29] LABS: BILIRUBIN,TOTAL 0.8 MG/DL (0.1-1.0)
[2020-12-28 13:31] LABS: CREATININE SERUM 1.18 MG/DL (0.60-1.30)
[2020-12-28] MEDS ORDERED: NS IV 1000 ML 1,000 ML IV ONE (14:00)
[2020-12-28] MEDS ORDERED: cefTRIAXone 1,000 MG in WATER (STERILE) FOR INJECTION 10 ML IV ONE (14:00)
--- NOTE | 2020-12-28 14:18 | Diagnostic Imaging Report ---
HISTORY: Sepsis. COMPARISON: 10/19/2016. TECHNIQUE: Frontal view of the chest. FINDINGS: There is dense consolidation throughout the left lung with relative sparing of the apex. The right lung is clear. The cardiac silhouette is obscured but appears to be stable in size. There is aortic atherosclerosis. No significant pleural effusion or pneumothorax is seen. There is a stable enchondroma in the proximal right humerus. IMPRESSION: 1. New dense consolidation throughout the left lung, consistent with pneumonia. Dictated by: Dictated on workstation # [id number]
[2020-12-28] MEDS ORDERED: CATHETER FLUSH 10 ML SYR IV PRN ×2 (14:30→18:00)
[2020-12-28] MEDS ORDERED: HOLD METFORMIN - RECEIVED CONTRAST 20 ML VIAL IV SCH (14:30)
[2020-12-28] MEDS ORDERED: IOHEXOL 350 MG/ML 100 ML (OMNIPAQUE 350) VIAL IV ONE (14:30)
[2020-12-28] MEDS ORDERED: CEFEPIME INJECTION 1,000 MG in WATER (STERILE) FOR INJECTION 10 ML IV ONE (14:45)
[2020-12-28 14:46] LABS: BAND NEUTROPHILS 6 %; BASOPHILS % (MANUAL) 1 %; LYMPHOCYTES % (MANUAL) 6 %; METAMYELOCYTES % 9 %; MONOCYTES % (MANUAL) 7 %; NEUTROPHILS % (MANUAL) 58 %
[2020-12-28 14:47] LABS: MYELOCYTES % 13 %; TOXIC GRANULATION/VACUOLAZATIO 4+
--- NOTE | 2020-12-28 16:11 | Diagnostic Imaging Report ---
INDICATION: Respiratory failure and shortness of breath and cough. TECHNIQUE: Multiple contiguous axial images were obtained through the chest after uneventful bolus administration of intravenous contrast. 3D reconstructed CTA MIP acquisitions were also performed. Auto Exposure Controls were utilized during the CT exam to meet ALARA standards for radiation dose reduction. COMPARISON: There is no previous CTA of the chest for comparison. FINDINGS: The pulmonary parenchymal vessels are well opacified with no CT evidence of pulmonary emboli. The thoracic aorta shows atherosclerotic plaquing throughout but no evidence of dissection or aneurysm. Great vessel origins are patent with minor plaquing. There is no mediastinal or hilar adenopathy. There are no enlarged axillary nodes or chest wall masses. Lung parenchymal windows demonstrate extensive alveolar consolidation throughout the left lower lobe and large portion of the left upper lobe with relative sparing of the apical region. There is diffuse emphysematous change. The right lung shows no focal lesion. There is a small left pleural effusion. There is no significant right pleural fluid or pericardial fluid. Visualized portions of the upper abdomen were unremarkable. IMPRESSION: Underlying emphysematous changes. Severe alveolar infiltrate throughout much of the left lower lobe and left upper lobe, compatible with pneumonia. There is a small left pleural effusion. There is no CT evidence of pulmonary emboli or aortic dissection or aneurysm. Dictated by: Dictated on workstation # [id number]
[2020-12-28 16:24] LABS: BILIRUBIN,URINE NEGATIVE (NEGATIVE); CLARITY,URINE CLEAR; COLOR,URINE YELLOW; GLUCOSE, URINE (UA) NEGATIVE (NEGATIVE); KETONES,URINE TRACE (NEGATIVE); LEUKOCYTE ESTERASE ,URINE NEGATIVE (NEGATIVE); NITRITE,URINE NEGATIVE (NEGATIVE); PROTEIN,URINE 2+ (NEGATIVE)
[2020-12-28 16:34] LABS: BACTERIA,URINE TRACE /HPF; HYALINE CASTS, URINE 25-50 /LPF; RBC,URINE RARE /HPF; WBC,URINE RARE /HPF
[2020-12-28] MEDS ORDERED: NS IV 1000 ML 1,000 ML ONE (17:05)
[2020-12-28] MEDS ORDERED: ONDANSETRON 4 MG/2 ML (SDV) Z0FRAN ONE (17:05)
[2020-12-28] MEDS ORDERED: ACETAMINOPHEN 325 MG TABLET ONE (17:05)
[2020-12-28] MEDS ORDERED: NOREPINEPHRINE 8 MG/250 ML 250 ML IV SCH (17:45)
[2020-12-28] MEDS ORDERED: ACETAMINOPHEN 325 MG TABLET PO PRN (17:45)
[2020-12-28] MEDS ORDERED: ACETAMINOPHEN 650 MG SUPP (TYLENOL) PR PRN (17:45)
[2020-12-28] MEDS ORDERED: EPINEPHrine 1 MG INJECTION 4 MG in NS (IVPB) 248 ML IV SCH (17:45)
[2020-12-28] MEDS ORDERED: morphine INJ 4 MG/ML 1 ML (VIAL/SYRINGE) IV PRN (17:45)
[2020-12-28] MEDS ORDERED: LORazepam INJ 2 MG/ML (ATIVAN) VIAL ONE (17:53)
[2020-12-28] MEDS ORDERED: AZITHROMYCIN 500 MG/NS 250 ML IVPB IV SCH ×2 (18:00)
[2020-12-28] MEDS ORDERED: ENOXAPARIN 40 MG/0.4 ML (LOVENOX) SYR SC SCH (18:00)
[2020-12-28] MEDS: NS IV 1000 ML 1,000 ML IV SCH ×2 (18:06→21:20)
[2020-12-28] MEDS: VASOPRESSIN INJECTION 20 UNIT in NS (IVPB) 100 ML IV SCH (18:07)
[2020-12-28] MEDS: ONDANSETRON 4 MG/2 ML (SDV) Z0FRAN IV PRN ×2 (18:08→22:13)
[2020-12-28] MEDS ORDERED: DULO30CA49 PO (18:20)
--- NOTE | 2020-12-28 18:22 | Tele-ICU Consult ---
History of Present Illness History of Present Illness Date Seen by Provider: Dec 28, 2020 Time Seen by Provider: 18:21 Date of Admission Allergies and Home Medications Allergies Coded Allergies: No Known Drug Allergies (Unverified , 10/19/16) Home Medications Amlodipine Besylate 5 Mg Tablet, 5 MG PO DAILY Prescribed by: JASE TORIBIO on 10/20/16 1327 Aspirin 81 Mg Tablet.dr, 81 MG PO DAILY Prescribed by: JASE TORIBIO on 10/20/16 1341 Atorvastatin Calcium 20 Mg Tablet, 20 MG PO HS, (Reported) Duloxetine HCl 30 Mg Capsule.dr, 30 MG PO DAILY, (Reported) Estradiol 1 Mg Tablet, 1 MG PO DAILY, (Reported) Guaifenesin/Dextromethorphan 237 Ml Syrup, 10 ML PO Q4H PRN for CONGESTION, (Reported) Levothyroxine Sodium 50 Mcg Tablet, 50 MCG PO DAILY, (Reported) Meloxicam 15 Mg Tablet, 15 MG PO DAILY, (Reported) Ondansetron 4 Mg Tab.rapdis, 4 MG PO Q8H PRN for NAUSEA/VOMITING-1ST LINE Prescribed by: JASE TORIBIO on 10/20/16 1341 Ropinirole HCl 1 Mg Tablet, 1 MG PO HS, (Reported) [Albuterol Neb] , IH Q4H PRN for SHORTNESS OF BREATH, (Reported) 0.5mg/3mg per 3ml Q 4 prn Past Medical/Social/Family Hx Patient Social History Tobacco Use?: Yes Tobacco type used: Cigarettes Smoking Status: Current Everyday Smoker Use of E-Cig and/or Vaping dev: No Substance use?: No Alcohol Use?: No Immunizations Up To Date Influenza Vaccine Up-to-Date: Yes; Up-to-Date First/Initial COVID19 Vaccinat: JUL 14 Second COVID19 Vaccination Brandon: AUG 14 Tetanus Booster (TDap): Unknown Hepatitis A: No Hepatitis B: No TB Skin Test: None Date of Pneumonia Vaccine: Mar 24, 2016 Current Status Advance Directives: No Advance Directive Location: PT REQUESTS DNI Communicates: Verbally Primary Language: Syriac Preferred Spoken Language: Syriac Is interpretation needed?: No Sensory deficits: Vision impairment Review of Systems Constitutional: see HPI Sepsis Event Evaluation Height, Weight, BMI Height: 5'5.00" Weight: 138lbs. 0.0oz. 62.498097ub; 21.67 BMI Method:Stated Exam Exam Patient acknowledged, consented, and participated in this virtual visit which was conducted using real time audio/video Vital Signs Date Time Temp Pulse Resp B/P (MAP) Pulse Ox O2 Delivery O2 Flow Rate FiO2 12/28/20 18:05 38.5 12/28/20 17:00 131 27 92/53 (66) 94 Nasal Cannula 6.00 12/28/20 16:59 134 36 123/64 (63) 92 OxyMask 4.00 12/28/20 16:57 131 12/28/20 13:18 127 40 92 45.00 12/28/20 12:47 37.0 120 36 84/52 (63) 84 OxyMask 10.00 12/28/20 12:47 92 OxyMask 10.00 Height & Weight Height: 5'5.00" Weight: 138lbs. 0.0oz. 62.069773xg; 21.67 BMI Method:Stated General Appearance: Mild Distress Capillary Refill: Less Than 3 Seconds Gastrointestinal: normal bowel sounds, non tender, soft Results Lab Laboratory Tests 12/28/20 13:00 Assessment/Plan Assessment/Plan (Tele-ICU Physician , consultation) Available chart/ vitals / labs / Images reviewed H&P is from ER notes Patient's information available about PMH, Shx, Fhx allergy reviewed in EMR. ROS as per chart and RN report Patient admitted \\12/28 with SOB Now in ICU, hemodynamically stable Video assessment done using teleICU camera, rest of exam as per RN Discussed with RN. Consultants: A/P Acute resp faillure, recently TX for AECOPD , now with PNA ( no PE - on 15 l O2 LEFT LL and lingula PNA ( confirmed by CT , small effusion on left ) - abx - sputum cx legionella urine sepsis - in ER given sepsis bolus , abx started - lactate is still elevated - to follow - might need pressors Hyponatremia 125 at 13.00 - no Sz, nl mental status - monitor closely - received IVF for sepsis - w 4 h check AECOPD - steroids IV , -nebs Pulm HTN on last ECHO 2017 - RVSP 60 , EF 60% as per noted - she would like to have CPR and resuscitative measures. However she would like to be a DNI Lines : periphCentral Line Necessity Reviewed) Esteves: OG: Nutrition: Analgesia: Anxiety/ delirium VTE Prophylaxis: lovenox 40 Stress Ulcer Prophylaxis: ppi Glycemic Control: Plans in collaboration with bedside consultants and IM MDs. Discussed with RN to reach out if any questions or concerns A total of 37 minutes of critical care time was devoted to this patient today, required to treat and/or prevent further deterioration of critical care condition ( as above ) JOVITA LYNCH MD Dec 28, 2020 18:22
[2020-12-28] MEDS ORDERED: RT-ALBUTEROL/IPRATROPIUM 3 ML (DUONEB) VIAL IH SCH (19:00)
[2020-12-28] MEDS ORDERED: RT-ALBUTEROL/IPRATROPIUM 3 ML (DUONEB) VIAL INH PRN (19:00)
[2020-12-28] MEDS ORDERED: LACTOBACILLUS Acidoph/Bulgar 1 GM (LACTINEX) PACKET PO SCH (21:00)
[2020-12-28 21:13] LABS: ABG BASE EXCESS -6.6 MMOL/L (-2.5-2.5); ABG OXYGEN SATURATION 85 % (94-100); ABG PCO2 41 MMHG (35-45); ABG PO2 58 MMHG (79-93); ABG TCO2 20.4 MMOL/L (21.0-31.0)
[2020-12-28 21:16] LABS: ABG PH 7.28 (7.37-7.43); ALLENS TEST ARTLINE; INSPIRED O2 45%
[2020-12-28 21:17] LABS: PATIENT TEMP 36.3; VENTILATOR NO
[2020-12-28] MEDS: PHENYLEPHRINE INJECTION 10 MG in NS (IVPB) 250 ML IV SCH ×3 (21:21→23:09)
[2020-12-28] MEDS: RT-ALBUTEROL/IPRATROPIUM 3 ML (DUONEB) VIAL INH SCH (21:25)
[2020-12-28] MEDS ORDERED: VASOPRESSIN INJECTION 20 UNIT in NS (IVPB) 100 ML IV SCH (21:45)
[2020-12-28 21:53] LABS: POTASSIUM 3.8 MMOL/L (3.6-5.0)
[2020-12-28 21:54] LABS: CALCIUM 7.3 MG/DL (8.5-10.1)
[2020-12-28 21:58] LABS: CREATININE SERUM 0.98 MG/DL (0.60-1.30)
--- NOTE | 2020-12-28 22:50 | Progress Note-Post Operative ---
Post-Operative Progess Note Surgeon (s)/Bike Assembler (s) Surgeon SAL FLORES DO Bike Assembler: none Pre-Operative Diagnosis Hypotension, Venous Insufficiency, Sepsis Post-Operative Diagnosis same Procedure & Operative Findings Date of Procedure 12/28/20 Procedure Performed/Findings The patient was in their bed in the ICU, was prepped and draped in the sterile fashion. A surgical pause was performed. Ultrasound was used to locate the internal jugular vein. Once located anesthetic was infiltrated above it. Using an 18 gauge finder needle and watching with the US; the right internal jugular vein was accessed. Dark nonpulsatile blood was withdrawn. The wire was inserted. Fluoroscopy assured proper placement. The needle was removed. A [#11] blade scalpel was used to make a stab incision along the guidewire. Dilator sheath was then advanced over the wire using Seldinger technique and the dilator was removed. The Groshong catheter was inserted over the guide wire using the Seldinger technique. The Groshong wire was removed. The catheter was then accessed in all three ports without difficulty. Good flash of blood was seen and it was then flushed with saline. The catheter was sutured in place with 3-0 silk on a bean needle. The areas were then washed and dried. Sterile dressing was placed over incision. The patient tolerated the procedure well without complication. Next attention was turned to placing an arterial line, 3 attempts made on the right; finally able to get one on the left. Arm was prepped with chloroprep and US was used to find the radial artery. Watched as the needle entered the artery, flash of blood was seen and the guidewire inserted easily. On the right I was unable to get the guidewire to thread. Pushed the catheter down over the wire and it went in easily. Then hooked up the catheter to the art line set-up and monitor; it had a good reading. It was cleaned and sterilely dressed. Anesthesia Type local lidocaine Estimated Blood Loss Estimated blood loss (mL): less than 5ml Specimens/Packing Specimens Removed none SAL FLORES DO Dec 28, 2020 22:50
[2020-12-28] MEDS ORDERED: CEFEPIME 1,000 MG/SWFI 10 ML IV PUSH IV SCH ×2 (23:00)
--- NOTE | 2020-12-28 23:11 | Consultation - Surgery ---
History of Present Illness History of Present Illness Patient Consulted On(liliam/time) 12/28/20 23:06 Time Seen by Provider: 19:49 History of Present Illness Surgery asked to consult regarding Pneumonia, pleural effusion possible empyema, Sepsis and Venous insufficiency. HPI per ED: This is a 70-year-old female who presents to the ER via [facility] with complaints of shortness of breath. States that she was recently diagnosed with exacerbation of her COPD and placed on azithromycin and prednisone taper middle of November. States that she has completed both of these. However, over the last 3 days she has been having increasing shortness of breath. Upon EMS arrival her oxygen saturation was in the 70s. She was given a DuoNeb which increased her oxygen to the upper 80s. She denies fever, chills, cough, nausea, vomiting, chest pain, abdominal pain. States that she has had both of her Covid vaccines. Has had no Covid exposures. When I saw pt she was in the ICU, hypotensive and taking deep breaths. She denied abdominal or chest pain. CT done show small fluid collection on the left and almost the whole left lung with pneumonia. Allergies and Home Medications Allergies Coded Allergies: No Known Drug Allergies (Unverified , 10/19/16) Home Medications Amlodipine Besylate 5 Mg Tablet, 5 MG PO DAILY Prescribed by: JASE TORIBIO on 10/20/16 1327 Last Action: Reviewed Aspirin 81 Mg Tablet., 81 MG PO DAILY Prescribed by: JASE TORIBIO on 10/20/16 1341 Last Action: Reviewed Atorvastatin Calcium 20 Mg Tablet, 20 MG PO HS, (Reported) Last Action: Reviewed Duloxetine HCl 30 Mg Capsule.dr, 30 MG PO DAILY, (Reported) Last Action: New Order Estradiol 1 Mg Tablet, 1 MG PO DAILY, (Reported) Last Action: Reviewed Guaifenesin/Dextromethorphan 237 Ml Syrup, 10 ML PO Q4H PRN for CONGESTION, (Rep orted) Last Action: Reviewed Levothyroxine Sodium 50 Mcg Tablet, 50 MCG PO DAILY, (Reported) Last Action: Reviewed Meloxicam 15 Mg Tablet, 15 MG PO DAILY, (Reported) Last Action: Reviewed Ondansetron 4 Mg Tab.rapdis, 4 MG PO Q8H PRN for NAUSEA/VOMITING-1ST LINE Prescribed by: JASE TORIBIO on 10/20/16 1341 Last Action: Reviewed Ropinirole HCl 1 Mg Tablet, 1 MG PO HS, (Reported) Last Action: Reviewed [Albuterol Neb] , IH Q4H PRN for SHORTNESS OF BREATH, (Reported) 0.5mg/3mg per 3ml Q 4 prn Last Action: Reviewed Patient Home Medication List Home Medication List Reviewed: Yes Past Yiheyaw-Hvqzvn-Bmmsql Hx Patient Social History Smoking Status: Current Everyday Smoker Type Used: Cigarettes 2nd Hand Smoke Exposure: Yes Recent Hopitalizations: No Alcohol Use?: No Have you traveled recently?: No Immunizations Up To Date Tetanus Booster (TDap): Less than 5yrs PED Vaccines UTD: No Date of Pneumonia Vaccine: Mar 24, 2016 Seasonal Allergies Seasonal Allergies: Yes Surgeries History of Surgeries: Yes (BREAST LUMPECTOMY) Surgeries: Appendectomy, Breast, Hysterectomy, Orthopedic Respiratory History of Respiratory Disorde: Yes (PROBABLY EMPHYSEMA, NOT YET DIAGNOSED) Respiratory Disorders: Emphysema Cardiovascular History of Cardiac Disorders: Yes Cardiac Disorders: High Cholesterol Neurological History of Neurological Disord: No Reproductive System Sexually Transmitted Disease: No HIV/AIDS: No 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 Genitourinary History of Genitourinary Disor: No Gastrointestinal History of Gastrointestinal Di: No Musculoskeletal History of Musculoskeletal Dis: Yes (LEFT ARM) Musculoskeletal Disorders: Fractures Endocrine History of Endocrine Disorders: Yes Endocrine Disorders: Hypothyroidsim HEENT History of HEENT Disorders: No Cancer History of Cancer: No Psychosocial History of Psychiatric Problem: No Integumentary History of Skin or Integumenta: No Blood Transfusions History of Blood Disorders: No Adverse Reaction to a Blood Tr: No Family Medical History Significant Family History: Cancer, Lung Disease Family Medial History: Alzheimer's disease 19 MOTHER, , Onset:60 years & older Blood clots 19 FATHER, , Onset:50's - 60 FH: chronic pain G8 SISTER, Onset:Unknown FH: emphysema G8 BROTHER, , Onset:60 years & older FH: lung cancer 19 FATHER, , Onset:50's - 60 Respiratory disorder G8 SISTER, Onset:Unknown Review of Systems-General Constitutional: malaise, weakness EENTM: No blurred vision, No double vision, No mouth swelling, No epistaxis Respiratory: cough, dyspnea on exertion, phlegm, short of breath Cardiovascular: No chest pain, No palpitations Gastrointestinal: No abdominal pain, No jaundice, No nausea, No vomiting Genitourinary: No dysuria, No frequency, No hematuria Musculoskeletal: joint pain, joint swelling, muscle stiffness Skin: No change in color, No change in hair/nails Psychiatric/Neurological: Denies Anxiety, Denies Depressed, Denies Seizure, Denies Tremors Physical Exam-General Problems Physical Exam Vital Signs Vital Signs - First Documented 12/28/20 12/28/20 12:47 21:00 Temp 37.0 Pulse 120 Resp 36 B/P (MAP) 84/52 (63) Pulse Ox 92 O2 Delivery OxyMask O2 Flow Rate 10.00 FiO2 100 Capillary Refill : Less Than 3 Seconds General Appearance: severe distress, cachetic Eyes: Bilateral Eye PERRL, Bilateral Eye EOMI HEENT: pharynx normal; No scleral icterus (R), No scleral icterus (L) Neck: non-tender, supple Respiratory: decreased breath sounds (left almost no breath sound), accessory muscle use, crackles, rhonchi, wheezing Cardiovascular: no murmur, tachycardia Gastrointestinal: non tender, soft, no organomegaly Back: no CVA tenderness, no vertebral tenderness Extremities: no pedal edema, no calf tenderness, normal capillary refill Neurologic/Psychiatric: riveter II-XII nml as tested, alert, oriented x 3 Skin: normal color, warm/dry Lymphatic: no adenopathy (neck, axilla or groin) Data Review Labs Laboratory Tests 12/28/20 13:00: White Blood Count 5.4, Red Blood Count 4.04, Hemoglobin 13.6, Hematocrit 38, Mean Corpuscular Volume 94, Mean Corpuscular Hemoglobin 34, Mean Corpuscular Hemoglobin Concent 36, Red Cell Distribution Width 12.3, Platelet Count 230, Mean Platelet Volume 8.6L, Immature Granulocyte % (Auto) 0, Neutrophils (%) (Auto) 89H, Lymphocytes (%) (Auto) 5L, Monocytes (%) (Auto) 5, Eosinophils (%) (Auto) 0, Basophils (%) (Auto) 1, Neutrophils # (Auto) 4.8, Lymphocytes # (Auto) 0.3L, Monocytes # (Auto) 0.3, Eosinophils # (Auto) 0.0, Basophils # (Auto) 0.1, Immature Granulocyte # (Auto) 0.0, Neutrophils % (Manual) 58, Lymphocytes % (Manual) 6, Monocytes % (Manual) 7, Basophils % (Manual) 1, Metamyelocytes % 9, Myelocytes % 13, Band Neutrophils 6, Toxic Granulation 4+, Prothrombin Time 16.6H, INR Comment 1.3, Activated Partial Thromboplast Time 29, D-Dimer 2.26H, Sodium Level 125*L, Potassium Level 4.0, Chloride Level 88L, Carbon Dioxide Level 23, Anion Gap 14, Blood Urea Nitrogen 20H, Creatinine 1.18, Estimat Glomerular Filtration Rate 44, BUN/Creatinine Ratio 17, Glucose Level 82, Lactic Acid Level 3.84*H, Calcium Level 9.4, Corrected Calcium 10.2H, Total Bilirubin 0.8, Aspartate Amino Transf (AST/SGOT) 40H, Alanine Aminotransferase (ALT/SGPT) 29, Alkaline Phosphatase 94, Troponin I 0.052H, C-Reactive Protein High Sensitivity 40.74H, B-Type Natriuretic Peptide 1547.9H, Total Protein 5.7L, Albumin 3.0L, Procalcitonin 22.29H, Thyroid Stimulating Hormone (TSH) 2.58, Smear Scan 12/28/20 13:07: Influenza Type A (RT-PCR) Not Detected, Influenza Type B (RT-PCR) Not Detected, SARS-CoV-2 RNA (RT-PCR) Not Detected 12/28/20 13:10: Blood Gas Puncture Site R RAD, Blood Gas Patient Temperature 37.0, Arterial Blo od pH 7.50H, Arterial Blood Partial Pressure CO2 28L, Arterial Blood Partial Pressure O2 74L, Arterial Blood HCO3 21L, Arterial Blood Total CO2 22.0, Arterial Blood Oxygen Saturation 96, Arterial Blood Base Excess -1.7, Lito Test YES-POS, Blood Gas Ventilator Setting NO, Blood Gas Inspired Oxygen 15 L 12/28/20 15:15: Lactic Acid Level 3.96*H 12/28/20 16:10: Urine Color YELLOW, Urine Clarity CLEAR, Urine pH 6.0, Urine Specific [place] 1.010L, Urine Protein 2+H, Urine Glucose (UA) NEGATIVE, Urine Ketones TRACEH, Urine Nitrite NEGATIVE, Urine Bilirubin NEGATIVE, Urine Urobilinogen 0.2, Urine Leukocyte Esterase NEGATIVE, Urine RBC (Auto) 2+H, Urine RBC RARE, Urine WBC RARE, Urine Squamous Epithelial Cells 2-5, Urine Crystals NONE, Urine Bacteria TRACE, Urine Casts PRESENT, Urine Hyaline Casts 25-50H, Urine Mucus NEGATIVE, Urine Culture Indicated CULTURE PENDING 12/28/20 17:20: Lactic Acid Level 4.09*H 12/28/20 19:56: Lactic Acid Level 1.49 12/28/20 20:57: Blood Gas Puncture Site LFT RAD, Blood Gas Patient Temperature 36.3, Arterial Blood pH 7.28*L, Arterial Blood Partial Pressure CO2 41, Arterial Blood Partial Pressure O2 58L, Arterial Blood HCO3 19L, Arterial Blood Total CO2 20.4L, Arterial Blood Oxygen Saturation 85L, Arterial Blood Base Excess -6.6L, Lito Test ARTLINE, Blood Gas Ventilator Setting NO, Blood Gas Inspired Oxygen 45% 12/28/20 21:30: Sodium Level 129L, Potassium Level 3.8, Chloride Level 99, Carbon Dioxide Level 14L, Anion Gap 16H, Blood Urea Nitrogen 22H, Creatinine 0.98, Estimat Glomerular Filtration Rate 54, BUN/Creatinine Ratio 22, Glucose Level 59*L, Lactic Acid Level 1.75, Calcium Level 7.3L Radiology Date of Exam:12/28/20 CT ANGIO CHEST W INDICATION: Respiratory failure and shortness of breath and cough. TECHNIQUE: Multiple contiguous axial images were obtained through the chest after uneventful bolus administration of intravenous contrast. 3D reconstructed CTA MIP acquisitions were also performed. Auto Exposure Controls were utilized during the CT exam to meet ALARA standards for radiation dose reduction. COMPARISON: There is no previous CTA of the chest for comparison. FINDINGS: The pulmonary parenchymal vessels are well opacified with no CT evidence of pulmonary emboli. The thoracic aorta shows atherosclerotic plaquing throughout but no evidence of dissection or aneurysm. Great vessel origins are patent with minor plaquing. There is no mediastinal or hilar adenopathy. There are no enlarged axillary nodes or chest wall masses. Lung parenchymal windows demonstrate extensive alveolar consolidation throughout the left lower lobe and large portion of the left upper lobe with relative sparing of the apical region. There is diffuse emphysematous change. The right lung shows no focal lesion. There is a small left pleural effusion. There is no significant right pleural fluid or pericardial fluid. Visualized portions of the upper abdomen were unremarkable. IMPRESSION: Underlying emphysematous changes. Severe alveolar infiltrate throughout much of the left lower lobe and left upper lobe, compatible with pneumonia. There is a small left pleural effusion. There is no CT evidence of pulmonary emboli or aortic dissection or aneurysm. Dictated by: Dictated on workstation # [id number] Dict: 12/28/20 1602 Trans: 12/28/20 1646 [id number] [id number] Interpreted by: MANI STUBBS MD Electronically signed by: MANI STUBBS MD 12/28/20 1646 Assessment/Plan Assessment/Plan Assessment/Plan Sepsis Pneumonia ?Empyema Venous insufficiency Pt is septic because of the pneumonia, causing SOB, tachypnea, tachycardia, and hypotension. She needs pressors for support and I placed a central line and art line. Pt has a very bad pneumonia on CT of the left lung and a little bit of fluid at the base. I doubt this is causing her problems at the present and work-up would include aspiration to assess for empyema and then repeat CT to see if it is getting worse. Right now the problem is the lung not being aerated because of pneumonia not because of fluid decreasing the are for lung. Will continue to monitor. IV fluid, IV ABX, pressor support, O2 as needed and pt may wind up intubated. SAL FLORES DO Dec 28, 2020 23:11
[2020-12-28] MEDS ORDERED: DEXTROSE 50% 50 ML (IMS) SYR IV ONE (23:15)
[2020-12-28] MEDS ORDERED: DEXTROSE 50% 50 ML (IMS) SYR ONE (23:23)
[2020-12-28] MEDS: methylPREDNISolone 40 MG/ML (Solu-MEDROL) VIAL IV SCH (23:25)
[2020-12-29] MEDS: PHENYLEPHRINE INJECTION 10 MG in NS (IVPB) 250 ML IV SCH (00:23)
[2020-12-29 01:30] LABS: POTASSIUM 3.7 MMOL/L (3.6-5.0)
[2020-12-29 01:31] LABS: CALCIUM 7.2 MG/DL (8.5-10.1)
[2020-12-29 01:36] LABS: CREATININE SERUM 0.92 MG/DL (0.60-1.30)
[2020-12-29] MEDS: PHENYLEPHRINE DOUBLE STRENGTH 20MG/ 250 ML IV SCH ×4 (01:37→05:47)
[2020-12-29] MEDS: RT-ALBUTEROL/IPRATROPIUM 3 ML (DUONEB) VIAL INH SCH ×3 (02:20→10:21)
[2020-12-29 02:36] LABS: ABG BASE EXCESS -10.6 MMOL/L (-2.5-2.5); ABG OXYGEN SATURATION 80 % (94-100); ABG PCO2 42 MMHG (35-45); ABG PO2 55 MMHG (79-93); ABG TCO2 17.1 MMOL/L (21.0-31.0)
[2020-12-29 02:39] LABS: INSPIRED O2 45%; PATIENT TEMP 37.4; VENTILATOR NO
[2020-12-29] MEDS: VASOPRESSIN INJECTION 20 UNIT in NS (IVPB) 100 ML IV SCH ×2 (02:44→06:37)
[2020-12-29] MEDS ORDERED: SODIUM BICARBONATE 8.4% VIAL 100 MEQ in 1/2 NS IV SOLUTION 1,000 ML IV SCH (03:00)
[2020-12-29] MEDS ORDERED: 1/2 NS IV SOLUTION 1,000 ML IV ONE (03:00)
[2020-12-29] MEDS ORDERED: CALCIUM CARBONATE 500 MG (TUMS) TAB.CHEW PO ONE (03:00)
[2020-12-29] MEDS ORDERED: SODIUM BICARB 8.4% 50 MEQ/50 ML (ABBOTT) SYR ONE (03:01)
[2020-12-29 03:30] LABS: BASOPHILS % (AUTO) 2 % (0-10); EOSINOPHILS # (AUTO) 0.1 10^3/uL (0.0-0.3); EOSINOPHILS % (AUTO) 4 % (0-10); HEMATOCRIT 39 % (35-52); HEMOGLOBIN 13.2 g/dL (11.5-16.0); LYMPHOCYTES # (AUTO) 0.2 10^3/uL (1.0-4.0); LYMPHOCYTES % (AUTO) 6 % (12-44); MEAN CORPUSCULAR HEMOGLOBIN 34 pg (25-34); MEAN CORPUSCULAR HGB CONC 34 g/dL (32-36); MEAN CORPUSCULAR VOLUME 98 fL (80-99); MEAN PLATELET VOLUME 8.7 fL (9.0-12.2); MONOCYTES # (AUTO) 0.1 10^3/uL (0.0-1.0); MONOCYTES % (AUTO) 5 % (0-12); NEUTROPHILS # (AUTO) 2.1 10^3/uL (1.8-7.8); NEUTROPHILS % (AUTO) 81 % (42-75); PLATELET COUNT 195 10^3/uL (130-400); WHITE BLOOD COUNT 2.6 10^3/uL (4.3-11.0)
[2020-12-29 03:40] LABS: CHLORIDE 103 MMOL/L (98-107); POTASSIUM 3.7 MMOL/L (3.6-5.0); SODIUM 131 MMOL/L (135-145)
[2020-12-29 03:41] LABS: CALCIUM 7.3 MG/DL (8.5-10.1)
[2020-12-29 03:42] LABS: GLUCOSE 117 MG/DL (70-105)
[2020-12-29 03:43] LABS: CARBON DIOXIDE 14 MMOL/L (21-32)
[2020-12-29 03:45] LABS: PHOSPHORUS 5.6 MG/DL (2.3-4.7)
[2020-12-29 03:46] LABS: BUN/CREATININE RATIO 26; CREATININE SERUM 0.87 MG/DL (0.60-1.30); GFR ESTIMATED > 60
[2020-12-29 03:48] LABS: MAGNESIUM 1.7 MG/DL (1.6-2.4)
[2020-12-29] MEDS ORDERED: fentaNYL DRIP PRE-MIX 250 ML IV SCH (04:00)
[2020-12-29] MEDS ORDERED: PROPOFOL DRIP (ICU) 100 ML IV SCH (04:00)
[2020-12-29] MEDS ORDERED: PROPOFOL DRIP (ICU) 100 ML IV ONE (04:03)
[2020-12-29 04:12] VITALS: BP 105/64
--- NOTE | 2020-12-29 04:45 | Anesthesia-Procedure Note ---
Procedures/Interventions Procedure Start/Stop/Diagnosis Date of Procedure: Dec 29, 2020 Start Time: 04:12 Referring Physician: EICU Preprocedural Diagnosis: respiratory failure Brief History Patient admitted previously today to ICU after arriving to ED with severe SOB and pneumonia. I was called at 0400 at home to intubate patient. On my arrival, RT and supporting staff at side of bed assisting with ventilation. SaO2 mid to low 80s. Airway eval WNL and top dentures removed by staff earlier. Patient drowsy but awake and making meaningful contact. I explained I was going to sedate her and place a breathing tube to help her rest and breathe better. Labs were reviewed. I noted HR 103 and NIBP on the lower side 90s/70s. Nursing staff reported shes on pressors. At 0412 I gave 3mg Versed, 10mg Etomidate and 80 Succs IV via central line prior to placing 7.5 ett with MAC 3 easily, atraumat ic, grade 1 view. Ett at 22 cm at lip. OG placed per nursing staff. CXR obtained. I offered to place arterial line, but it was declined at this time. NIBP dropped initially but recovered well with SBP > 100. SaO2 slow to recover, sometimes reading high 70s, but eventually returned to 89-90% with vent changes and increasing PEEP. Reported off to JH Murray and RT. Stop Time: 04:30 BELTRAN SANTIZO CRNA Dec 29, 2020 04:44
[2020-12-29 04:51] LABS: ABG OXYGEN SATURATION 85 % (94-100); ABG PCO2 52 MMHG (35-45); ABG PO2 64 MMHG (79-93); ABG TCO2 18.9 MMOL/L (21.0-31.0)
[2020-12-29 04:52] LABS: ABG PH 7.15 (7.37-7.43)
[2020-12-29 04:53] LABS: INSPIRED O2 45%; PATIENT TEMP 37.2; VENTILATOR NO
--- NOTE | 2020-12-29 05:37 | Diagnostic Imaging Report ---
INDICATION: Abdominal pain. Sepsis. Pneumonia. Respiratory failure. COMPARISON: None FINDINGS: Supine and upright radiographic views of the abdomen were obtained. Small bowel loops are nondistended. There is no large collection of free intraperitoneal air. No abnormal air-fluid levels are identified. No unexpected extraosseous calcifications or radiopaque foreign bodies are seen. Osseous structures show age-related degenerative changes. Included portions of the lungs show persistent complete opacification left mid and lower lung field and more patchy infiltrates in the left upper lung. There is patchy infiltrate in right base as well. IMPRESSION: 1. Nonobstructed small bowel gas pattern. 2. Probable moderate left-sided effusion with associated infiltrate, left greater than right. Dictated by: Dictated on workstation # [id number]
[2020-12-29] MEDS: methylPREDNISolone 40 MG/ML (Solu-MEDROL) VIAL IV SCH (05:46)
--- NOTE | 2020-12-29 05:46 | Diagnostic Imaging Report ---
INDICATION: Intubated patient. Evaluate lines and tubes. COMPARISON: Earlier same day FINDINGS: Single frontal radiographic view of the chest was obtained and demonstrates interval placement of endotracheal tube. Tip terminates above the ramesh and below the thoracic inlet. Gastric tube is also seen with tip and side-port likely within the stomach. Left internal jugular central venous catheter is also present with tip in the low SVC. Lungs continue to show complete consolidation left mid and lower lung field with more patchy airspace opacities in the left apex and patchy infiltrate in the right base. There is no large effusion on the right. No pneumothorax is seen on either side. Cardiac silhouette is obscured. Osseous structures show no adverse interval change. IMPRESSION: 1. Lines and tubes as above. 2. Otherwise, stable exam of the chest showing large amount of infiltrate on the left with probable ipsilateral effusion. 3. Stable patchy infiltrate in the right base as well. Dictated by: Dictated on workstation # [id number]
[2020-12-29] MEDS ORDERED: PHENYLEPHRINE IV SCH (07:00)
[2020-12-29] MEDS ORDERED: SODIUM CHLORIDE IV SCH (07:00)
--- NOTE | 2020-12-29 07:01 | Occ Therapy Progress Note ---
Therapy Progress Note Orders received. Pt is currently intubated. OT will monitor pt status and initiate treatment when pt is medically stable and able to actively participate in skilled therapy. MANISHA ACUNA Dec 29, 2020 07:01
[2020-12-29 07:33] LABS: ABG BASE EXCESS -9.4 MMOL/L (-2.5-2.5); ABG OXYGEN SATURATION 22 % (94-100); ABG PCO2 65 MMHG (35-45)
[2020-12-29 07:34] VITALS: BP 118/62
[2020-12-29 07:35] LABS: ABG PH 7.09 (7.37-7.43); ABG PO2 25 MMHG (79-93)
[2020-12-29 07:36] LABS: INSPIRED O2 100%; PATIENT TEMP 36.7; VENTILATOR NO
--- NOTE | 2020-12-29 08:12 | Physical Therapy Progress Note ---
Therapy Progress Note Patient sedated and intubated. PT will continue to monitor patient status and initiate treatment when patient is able to actively participate with skilled therapy. JESSICA ANDERSON PT Dec 29, 2020 08:12
--- NOTE | 2020-12-29 08:16 | Diagnostic Imaging Report ---
INDICATION: Pneumonia Portable chest 1:00 AM Comparison made with the previous day. Left IJ central line tip projects over the SVC. There is large infiltrate in the left lung. Right lung has minimal infiltrate or atelectasis at the base. Left-sided effusion cannot be excluded. IMPRESSION: Large dense area of consolidation left lung consistent with pneumonia with questionable effusion. Also some increased density right medial lung base that could be developing infiltrate or atelectasis. Overall appearance of the chest is slightly worse compared to previous day. Dictated by: Dictated on workstation # [id number]
[2020-12-29] MEDS ORDERED: ETOMIDATE IV SOLN 20 MG/10 ML VIAL IV ONE (08:27)
[2020-12-29] MEDS ORDERED: SUCCINYLCHOLINE INJ 100 MG/5 ML SYR/VIAL INJ ONE (08:27)
[2020-12-29] MEDS ORDERED: MIDAZOLAM 5 MG/5 ML (VERSED) VIAL IJ ONE (08:27)
[2020-12-29 08:54] LABS: BUN/CREATININE RATIO 30; CARBON DIOXIDE 19 MMOL/L (21-32); CHLORIDE 103 MMOL/L (98-107); CREATININE SERUM 0.87 MG/DL (0.60-1.30); GFR ESTIMATED > 60; GLUCOSE 102 MG/DL (70-105); POTASSIUM 4.6 MMOL/L (3.6-5.0); SODIUM 131 MMOL/L (135-145)
[2020-12-29] MEDS ORDERED: ENOXAPARIN 40 MG/0.4 ML (LOVENOX) SYR SC SCH (09:00)
[2020-12-29] MEDS ORDERED: PANTOPRAZOLE 40 MG (PROTONIX) VIAL IV SCH ×2 (09:00)
--- NOTE | 2020-12-29 10:17 | Tele-ICU Progress Note ---
Subjective Date Seen by a Provider: Dec 29, 2020 Time Seen by a Provider: 08:03 Sepsis Event Evaluation Height, Weight, BMI Height: 5'5.00" Weight: 138lbs. 0.0oz. 62.426329sq; 21.67 BMI Method:Stated Focused Exam Lactate Level 12/29/20 03:27: Lactic Acid Level 2.47*H 12/29/20 06:49: Lactic Acid Level 2.38*H 12/29/20 08:15: Lactic Acid Level 2.35*H Lactic Acid Level Laboratory Tests Test 12/29/20 06:49 12/29/20 08:15 Lactic Acid Level 2.38 MMOL/L (0.50-2.00) *H 2.35 MMOL/L (0.50-2.00) *H Exam Exam Patient acknowledged, consented, and participated in this virtual visit which was conducted using real time audio/video Vital Signs Date Time Temp Pulse Resp B/P (MAP) Pulse Ox O2 Delivery O2 Flow Rate FiO2 12/29/20 09:00 112 20 120/60 (80) 84 Mechanical Ventilator 100.00 12/29/20 08:00 112 20 110/75 (87) 70 Mechanical Ventilator 100.00 12/29/20 08:00 36.7 12/29/20 07:34 112 20 100 12/29/20 07:00 107 20 119/73 (88) 74 Mechanical Ventilator 100.00 12/29/20 06:50 108 12/29/20 06:37 107 119/65 12/29/20 06:00 105 20 127/61 (83) 82 Mechanical Ventilator 100.00 12/29/20 05:47 101 107/64 12/29/20 05:09 97 106/64 12/29/20 05:00 98 15 106/46 (66) 90 Mechanical Ventilator 100.00 12/29/20 04:25 Mechanical Ventilator 100.00 12/29/20 04:12 74 16 86 100 12/29/20 04:00 Mechanical Ventilator 100 12/29/20 04:00 121 16 86/75 (79) 89 Nasal Cannula 6.00 12/29/20 03:00 117 28 124/86 (99) 90 Nasal Cannula 6.00 12/29/20 02:20 89 Vapotherm 40.00 100 12/29/20 02:00 118 28 131/73 (92) 90 Nasal Cannula 6.00 12/29/20 01:37 117 119/73 12/29/20 01:00 120 12/29/20 01:00 117 20 128/99 (109) 92 Nasal Cannula 6.00 12/29/20 00:23 107 117/50 12/29/20 00:00 Vapotherm 40.00 100 12/29/20 00:00 112 28 116/53 (74) 94 Nasal Cannula 6.00 12/28/20 23:09 107 117/50 12/28/20 23:00 106 38 114/50 (71) 94 Nasal Cannula 6.00 12/28/20 22:37 110 94/44 12/28/20 22:02 110 91/41 12/28/20 22:00 110 26 89/44 (59) 96 Nasal Cannula 6.00 12/28/20 21:21 111 98/44 12/28/20 21:00 92 Vapotherm 40.00 100 12/28/20 21:00 111 25 101/41 (61) 93 Nasal Cannula 6.00 12/28/20 20:00 120 14 93 Nasal Cannula 6.00 12/28/20 20:00 OxyMask 15.00 12/28/20 19:39 37.6 12/28/20 19:00 121 36 97/65 (76) 92 Nasal Cannula 6.00 12/28/20 19:00 120 12/28/20 18:52 37.0 120 84 12/28/20 18:35 37.2 12/28/20 18:05 38.5 12/28/20 18:00 124 40 99/57 (71) 94 Nasal Cannula 6.00 12/28/20 18:00 OxyMask 7.00 12/28/20 17:00 131 27 92/53 (66) 94 Nasal Cannula 6.00 12/28/20 16:59 134 36 123/64 (63) 92 OxyMask 4.00 12/28/20 16:57 131 12/28/20 13:18 127 40 92 45.00 12/28/20 12:47 37.0 120 36 84/52 (63) 84 OxyMask 10.00 12/28/20 12:47 92 OxyMask 10.00 I & O 12/29/20 07:00 Intake Total 4617 ml Output Total 1590 ml Balance 3027 ml Height & Weight Height: 5'5.00" Weight: 138lbs. 0.0oz. 62.007076da; 21.67 BMI Method:Stated General Appearance: Mild Distress Capillary Refill: Less Than 3 Seconds Gastrointestinal: normal bowel sounds, non tender, soft Results Lab Laboratory Tests 12/28/20 13:00 12/28/20 21:30 12/29/20 01:10 12/29/20 03:27 12/29/20 08:15 Assessment/Plan Assessment/Plan (Tele-ICU Physician , Progress Note ) Available chart/ vitals / labs / Images reviewed Video assessment done using teleICU camera, rest of exam as per RN Discussed with RN Events overnight : intubated , c/o abd pain prior to intubation Afebrile hemodynamically stable, vasp = sera pressors, I/O = pos 3700 Drips: nwo 250 , vaso 0,04 , propofol As per RN exam : no abd tenderness, sedated VENT SETTINGS. ac -20 - 450- 100% = 12 ABG reviewed Sedation: RASS -2 Hospital course: 12/28 - admitted with PNA , AECOPD 12/29 am - intubated 100% peep 12 , pressors x2 Consultants: A/P Acute resp faillure, recently TX for AECOPD , admitted with PNA ( no PE - 12/29 - intubated , full support , adjust vent setting Severe metabilic acidosis. mild resp acidosis - lactate trnending down, had abd pain prior to intubation - no tenderness on abd exam - will consider CT abd if lactate is not clering/ rising - bicarb gtt for ?WPB - follow abg - to adjust vent LEFT LL and lingula PNA ( confirmed by CT , small effusion on left ) , neg COVID and FLU - abx CAP 12/28-> - sputum cx pending legionella urine pending sepsis - in ER given sepsis bolus , abx started - lactate is still elevated - to follow , as per bedside - no tenderness on abd exam - will consider CT abd if lactate is not clering/ rising - pressors sera+ vaso , on steroids IV Abd pain - as per report - chronic intermittent issues - OG in place - > 1L dark output - cint LIS , HB stable - follow on PPI Hyponatremia 125 - no Sz, nl mental status SAW FEEDER - monitor closely - received IVF for sepsis - increased appropriatly AECOPD - steroids IV , -nebs Pulm HTN on last ECHO 2016 - RVSP 60 , EF 60% Lines : Left IH 12/29 Central Line Necessity Reviewed) Esteves: 12/28 O/7 Nutrition: NPO Analgesia: prn Anxiety/ delirium prpopfol VTE Prophylaxis: lovenox 40 Stress Ulcer Prophylaxis: ppi Glycemic Control: + Plans in collaboration with bedside consultants and IM MDs. Discussed with RN to reach out if any questions or concerns A total of 37 minutes of critical care time was devoted to this patient today, required to treat and/or prevent further deterioration of critical care condition ( as above ) JOVITA LYNCH MD Dec 29, 2020 10:17
[2020-12-29 10:22] VITALS: BP 92/42
[2020-12-29] MEDS ORDERED: BISACODYL 10 MG SUPP (DULCOLAX) PR PRN (11:45)
[2020-12-29] MEDS ORDERED: LORazepam INJ 2 MG/ML (ATIVAN) VIAL IVP PRN (11:45)
[2020-12-29] MEDS ORDERED: ONDANSETRON 4 MG/2 ML (SDV) Z0FRAN IVP PRN (11:45)
[2020-12-29] MEDS ORDERED: ARTIFICAL TEARS 0.4 ML UNIT DOSE (REFRESH PLUS) OU PRN (11:45)
[2020-12-29] MEDS ORDERED: ACETAMINOPHEN 650 MG SUPP (TYLENOL) PR PRN (11:45)
[2020-12-29] MEDS ORDERED: PROMETHAZINE INJ 25 MG/ML (PHENERGAN) AMP IVP PRN (11:45)
[2020-12-29] MEDS ORDERED: SALIVA STIMULANT MOUTH SPRAY (BIOTENE) 1.5 OZ MM PRN (11:45)
[2020-12-29] MEDS ORDERED: morphine INJ 4 MG/ML 1 ML (VIAL/SYRINGE) IV PRN (11:45)
[2020-12-29] MEDS ORDERED: GLYCOPYRROLATE 0.2 MG/ML (ROBINUL) 2 ML VIAL IV PRN (11:45)
[2020-12-29] MEDS ORDERED: RT-ALBUTEROL/IPRATROPIUM 3 ML (DUONEB) VIAL INH PRN (11:45)
--- NOTE | 2020-12-29 12:20 | History & Physical-Hospitalist ---
GAYATRI VENEGAS MED STUDENT 12/29/20 1220: History of Present Illness HPI/Chief Complaint This is an 80 YO female with hx of COPD who came to the ER yesterday via EMS with worsening SOB for the past 3 days. Upon EMS arrival her O2 sat was in the 70s, improved to upper 80s with duoneb. No fever, chills, cough, nausea, vomiting, chest pain, abdominal pain. Had both doses of Covid vaccine, no Covid exposures. Workup in the ER showed septic shock, lactic acidosis, left-sided pneumonia and pleural effusion. Admitted to the ICU on oxygen mask at 15 liters with O2 in the 90's, but her respiratory distress worsened overnight and she was intubated. Pt had initially requested to be DNI in the ER, but changed her mind when her respiratory status worsened. Currently on Azithromycin and Cefepime and BP maintained on multiple pressors. O2 saturations in 80's on ventilator. Source: family, RN/MD Exam Limitations: clinical condition Date Seen 12/29/20 Time Seen by a Provider: 08:15 Attending Physician Marla Harley MD PCP No,Local Physician Referring Physician Date of Admission Dec 28, 2020 at 14:07 Home Medications & Allergies Home Medications Reviewed patient Home Medication Reconciliation performed by pharmacy medication reconciliations field operations technician and/or nursing. Patients Allergies have been reviewed. Allergies Allergies Coded Allergies No Known Drug Allergies (Unverified10/19/16) Past Medical/Social/Family Hx Patient Social History Tobacco Use?: Yes Tobacco type used: Cigarettes Smoking Status: Current Everyday Smoker Use of E-Cig and/or Vaping dev: No Substance use?: No Alcohol Use?: No Immunizations Up To Date Influenza Vaccine Up-to-Date: Yes; Up-to-Date First/Initial COVID19 Vaccinat: JUL 14 Second COVID19 Vaccination Brandon: AUG 14 Tetanus Booster (TDap): Unknown Hepatitis A: No Hepatitis B: No TB Skin Test: None Date of Pneumonia Vaccine: Mar 24, 2016 Current Status Advance Directives: No Advance Directive Location: PT REQUESTS DNI Communicates: Verbally Primary Language: Bhutanese Preferred Spoken Language: Bhutanese Is interpretation needed?: No Sensory deficits: Vision impairment Review of Systems ROS-Unable to Obtain: due to clinical condition Physical Exam Physical Exam Vital Signs Vital Signs - First Documented 12/28/20 12/28/20 12:47 21:00 Temp 37.0 Pulse 120 Resp 36 B/P (MAP) 84/52 (63) Pulse Ox 92 O2 Delivery OxyMask O2 Flow Rate 10.00 FiO2 100 Capillary Refill : Less Than 3 Seconds Height, Weight, BMI Height: 5'5.00" Weight: 138lbs. 0.0oz. 62.166395yn; 21.67 BMI Method:Stated General Appearance: Other (intubated and sedated) HEENT: Other (ET tube and NG tube in place) Neck: Normal Inspection Respiratory: Decreased Breath Sounds, Other (mechanically ventilated) Cardiovascular: Tachycardia, Other (diminished peripheral pulses bilaterally) Gastrointestinal: No Distended Extremity: No Pedal Edema, Other (cyanotic and mottled fingers bilaterally) Neurologic/Psychiatric: Other (sedated) Results Results/Procedures Labs Laboratory Tests 12/28/20 13:00 12/28/20 21:30 12/29/20 01:10 12/29/20 03:27 12/29/20 08:15 Patient resulted labs reviewed. Imaging: Reviewed Imaging Report Assessment/Plan Admission Diagnosis septic shock, pneumonia, acute respiratory failure Assessment and Plan Septic Shock Levophed, Vasopression, and phenylephrine fluid resuscitation Acute respiratory failure Intubated and mechanically ventilated Sedated with propofol Palliative care consult Pneumonia Azithromycin and Cefepime Lactic acidosis Lovenox for DVT prophylaxis Protonix for GI prophylaxis Pt's daughter and son are at bedside. Discussed pt's poor prognosis with them and that pt is not maintaining oxygenation despite being on the ventilator. They agree to make pt DNR and will talk to pt's other children about transitioning pt to comfort care. MARLA HARLEY MD 12/29/205: Past Medical/Social/Family Hx Past Medical History COPD Family Medical History Family Hx: Noncontributory Review of Systems Constitutional: see HPI Assessment/Plan Admission Diagnosis Admission Status: Inpatient Order (span 2 midnights) Reason for Inpatient Admission: Septic shock on pressors and intubated Critical Care Critically Ill Patient Diagnosis/Problems Diagnosis/Problems (1) Septic shock Status: Acute (2) Pneumonia Status: Acute Qualifiers: Pneumonia type: due to Pseudomonas Laterality: left Lung location: unspecified part of lung Qualified Codes: J15.1 - Pneumonia due to Pseudomonas (3) Acute respiratory failure with hypoxia Status: Acute (4) Pseudomonal bacteremia Status: Acute (5) COPD (chronic obstructive pulmonary disease) Status: Acute (6) Poor prognosis Status: Acute (7) Comfort measures only status Status: Acute Supervisory-Addendum Brief Verification & Attestation Participated in pt care: history, MDM, physical Personally performed: exam, history, MDM, supervision of care Care discussed with: Medical Student Procedures: n/a Results interpretation: Verified all documentation A medical student performed and documented this service. I then reviewed and verified all information documented by the medical student and made modifications to such information, when appropriate. I personally performed a history, physical exam, and performed medical decision making. GAYATRI VENEGAS MED STUDENT Dec 29, 2020 12:20 MARLA HARLEY MD Dec 29, 2020 22:05
--- NOTE | 2020-12-29 21:59 | Discharge Summary ---
Discharge Summary Hospital Course Was the Problem List Reviewed?: Yes Problems/Dx: (1) Septic shock Status: Acute (2) Pneumonia Status: Acute Qualifiers: Qualified Codes: J15.1 - Pneumonia due to Pseudomonas (3) Acute respiratory failure with hypoxia Status: Acute (4) Pseudomonal bacteremia Status: Acute Hospital Course Date of Admission: Dec 28, 2020 at 14:07 Admission Diagnosis : Septic shock due to pneumonia Family Physician/Provider: Marisela Cleaning Date of Discharge: 12/29/20 Discharge Diagnosis: Septic shock due to Pseudomonas pneumonia and bacteremia Hospital Course: Chiquita Cedillo was an 80 year old female with COPD who was admitted with septic shock due to pneumonia. She was started on IV fluids and antibiotics. Her blood pressures dropped and she was started on pressors. Her respiratory status worsened and she requested intubation despite previously being DNR/DNI. She continued to worsen despite aggressive care. She remained hypoxic despite maxim al support with the ventilator. Her family made the decision to transition to comfort measures only status. She was removed from all support and subsequently . Her time of was 1251 on 12/29/2020. Labs and Pending Lab Test: Laboratory Tests 12/28/20 23:11: Glucometer 54*L 12/28/20 23:59: Glucometer 115H 12/29/20 01:10: Sodium Level 131L, Potassium Level 3.7, Chloride Level 102, Carbon Dioxide Level 15L, Anion Gap 14, Blood Urea Nitrogen 23H, Creatinine 0.92, Estimat Glomerular Filtration Rate 58, BUN/Creatinine Ratio 25, Glucose Level 110H, Lactic Acid Level 2.71*H, Calcium Level 7.2L 12/29/20 02:27: Blood Gas Puncture Site R RADIAL, Blood Gas Patient Temperature 37.4, Arterial Blood pH 7.20*L, Arterial Blood Partial Pressure CO2 42, Arterial Blood Partial Pressure O2 55L, Arterial Blood HCO3 16*L, Arterial Blood Total CO2 17.1L, Arterial Blood Oxygen Saturation 80L, Arterial Blood Base Excess -10.6L, Lito Test NA, Blood Gas Ventilator Setting NO, Blood Gas Inspired Oxygen 45% 12/29/20 03:27: White Blood Count 2.6L, Red Blood Count 3.92, Hemoglobin 13.2, Hematocrit 39, Mean Corpuscular Volume 98, Mean Corpuscular Hemoglobin 34, Mean Corpuscular Hemoglobin Concent 34, Red Cell Distribution Width 13.1, Platelet Count 195, Mean Platelet Volume 8.7L, Immature Granulocyte % (Auto) 3, Neutrophils (%) (Auto) 81H, Lymphocytes (%) (Auto) 6L, Monocytes (%) (Auto) 5, Eosinophils (%) (Auto) 4, Basophils (%) (Auto) 2, Neutrophils # (Auto) 2.1, Lymphocytes # (Auto) 0.2L, Monocytes # (Auto) 0.1, Eosinophils # (Auto) 0.1, Basophils # (Auto) 0.0, Immature Granulocyte # (Auto) 0.1, Sodium Level 131L, Potassium Level 3.7, Chloride Level 103, Carbon Dioxide Level 14L, Anion Gap 14, Blood Urea Nitrogen 23H, Creatinine 0.87, Estimat Glomerular Filtration Rate > 60, BUN/Creatinine Ratio 26, Glucose Level 117H, Lactic Acid Level 2.47*H, Calcium Level 7.3L, Phosphorus Level 5.6H, Magnesium Level 1.7 12/29/20 04:44: Blood Gas Puncture Site NA, Blood Gas Patient Temperature 37.2, Arterial Blood pH 7.15*L, Arterial Blood Partial Pressure CO2 52H, Arterial Blood Partial Pressure O2 64L, Arterial Blood HCO3 17*L, Arterial Blood Total CO2 18.9L, Arterial Blood Oxygen Saturation 85L, Arterial Blood Base Excess -10.0L, Lito Test NA, Blood Gas Ventilator Setting NO, Blood Gas Inspired Oxygen 45% 12/29/20 06:49: Lactic Acid Level 2.38*H 12/29/20 07:15: Blood Gas Puncture Site UNK, Blood Gas Patient Temperature 36.7, Arterial Blood pH 7.09*L, Arterial Blood Partial Pressure CO2 65H, Arterial Blood Partial Pressure O2 25*L, Arterial Blood HCO3 19L, Arterial Blood Total CO2 21.0, Arterial Blood Oxygen Saturation 22L, Arterial Blood Base Excess -9.4L, Lito Test UNK, Blood Gas Ventilator Setting NO, Blood Gas Inspired Oxygen 100% 12/29/20 08:15: Sodium Level 131L, Potassium Level 4.6, Chloride Level 103, Carbon Dioxide Level 19L, Anion Gap 9, Blood Urea Nitrogen 26H, Creatinine 0.87, Estimat Glomerular Filtration Rate > 60, BUN/Creatinine Ratio 30, Glucose Level 102, Lactic Acid Level 2.35*H, Calcium Level 7.0L 12/29/20 11:15: Glucometer 28*L Microbiology 12/29/20 Gram Stain - Final, Resulted 12/29/20 Sputum Culture, Resulted Pending 12/28/20 Urine Culture - Final, Complete NO GROWTH 12/28/20 Blood Culture - Preliminary, Resulted Pseudomonas species Home Meds Active Aspir 81 (Aspirin) 81 Mg Tablet.dr 81 Mg PO DAILY 30 Days Zofran Odt (Ondansetron) 4 Mg Tab.rapdis 4 Mg PO Q8H PRN Norvasc (Amlodipine Besylate) 5 Mg Tablet 5 Mg PO DAILY Reported Duloxetine HCl 30 Mg Capsule.dr 30 Mg PO DAILY [place] Dm Cough & Chest Liquid (Guaifenesin/Dextromethorphan) 237 Ml Syrup 10 Ml PO Q4H PRN Meloxicam 15 Mg Tablet 15 Mg PO DAILY Atorvastatin Calcium 20 Mg Tablet 20 Mg PO HS Estradiol Tablet (Estradiol) 1 Mg Tablet 1 Mg PO DAILY Ropinirole HCl 1 Mg Tablet 1 Mg PO HS Levothyroxine Sodium 50 Mcg Tablet 50 Mcg PO DAILY [Albuterol Neb] IH Q4H PRN 0.5mg/3mg per 3ml Q 4 prn Assessment/Pt Instructions Patient Discharge Planning: <30 minutes discharge planning Discharge Physical Examination Vital Signs Vital Signs Date Time Temp Pulse Resp B/P (MAP) Pulse Ox O2 Delivery O2 Flow Rate FiO2 12/29/20 12:00 38.4 12/29/20 12:00 118 19 143/78 (99) 79 Mechanical Ventilator 100.00 12/29/20 10:22 100 General Appearance: No Apparent Distress, Other (endotracheally intubated) Respiratory: Crackles, Decreased Breath Sounds, Other (intubated) Cardiovascular: No Edema, No Murmur, Tachycardia Gastrointestinal: Normal Bowel Sounds, Soft Extremity: Normal Inspection, No Pedal Edema Skin: Cool, Mottled Neurologic/Psychiatric: Other (sedated, unresponsive) Allergies: Coded Allergies: No Known Drug Allergies (Unverified , 10/19/16) Discharge Summary Date of Admission Dec 28, 2020 at 14:07 Date of Discharge Dec 29, 2020 at 14:15 Discharge Date: Dec 29, 2020 Discharge Time: 14:15 Admission Diagnosis septic shock, pneumonia, acute respiratory failure Comfort Measures/ End of Life Care: Comfort Measures Date of : Dec 29, 2020 Time of : 12:51 Discharge Diagnosis (1) Septic shock Status: Acute (2) Pneumonia Status: Acute Qualifiers: Qualified Codes: J15.1 - Pneumonia due to Pseudomonas (3) Acute respiratory failure with hypoxia Status: Acute (4) Pseudomonal bacteremia Status: Acute MARLA HARLEY MD Dec 29, 2020 21:59
== END 2020-12-29 14:15 | disposition expired | DRG 871 ==
LOC: EDUNIT# 12:47 → ER 12:55 → ICU 14:07
PROVIDERS: ADMIT Internal Medicine; ATTEND Internal Medicine
PROC: 03HY32Z Insertion of Monitoring Device into Upper Artery, Percutaneous Approach (ICD-10-PCS; principal; 2020-12-28)
PROC: 02HV33Z Insertion of Infusion Device into Superior Vena Cava, Percutaneous Approach (ICD-10-PCS; 2020-12-28)
PROC: 5A1935Z Respiratory Ventilation, Less than 24 Consecutive Hours (ICD-10-PCS; 2020-12-29)
PROC: 0BH17EZ Insertion of Endotracheal Airway into Trachea, Via Natural or Artificial Opening (ICD-10-PCS; 2020-12-29)
DX: A41.52 Sepsis due to Pseudomonas (principal); R65.21 Severe sepsis with septic shock; J96.01 Acute respiratory failure with hypoxia; J15.1 Pneumonia due to Pseudomonas; E87.1 Hypo-osmolality and hyponatremia; E87.2 Acidosis; Z51.5 Encounter for palliative care; Z66 Do not resuscitate; J43.9 Emphysema, unspecified; Z20.822 Contact with and (suspected) exposure to COVID-19; E78.00 Pure hypercholesterolemia, unspecified; E03.9 Hypothyroidism, unspecified; F17.210 Nicotine dependence, cigarettes, uncomplicated; I27.20 Pulmonary hypertension, unspecified; I95.9 Hypotension, unspecified; I87.2 Venous insufficiency (chronic) (peripheral); Z79.82 Long term (current) use of aspirin; Z79.899 Other long term (current) drug therapy; Z79.890 Hormone replacement therapy
CPT/HCPCS: 36415; 71045; 71275; 74019; 80048; 80053; 81000; 82805; 82947; 83605; 83735; 83880; 83930; 84100; 84145; 84443; 84484; 85007; 85025; 85027; 85379; 85610; 85730; 86141; 87040; 87070; 87077; 87081; 87088; 87186; 87205; 87449; 87636; 93005; 94002; 94640; 94799; 99291